=== PATIENT | female | born 1945 | race Caucasian/White ===

== ENCOUNTER 2025-07-30 09:12 | Outpatient (OUT) | payer MEDICARE, SELFPAY ==
--- OUTSIDE RECORDS SUMMARY | 2025-07-16 08:40 | XMS_ITS | Encounter Summary ---
Author Organization [facility] 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 Pt is here for a 4 week follow up after her heart cath. Pt is still very SOB and still having palpitations. She also has an issue with her thyroid right now. Light headed/dizziness off and on, no falls or syncope. She only has CP when her GERD acts up, she said when she takes her roll aids this helps. Encounter Details DateTypeDepartmentCare Team (Latest Contact Info)Pkiqcmfeblh57/20/2025 8:40 AM ESTOffice Visit [facility] Part of [address] [phone] Shan Romero MD [address] [place] [phone] Coronary artery calcification; Essential hypertension; Mixed hyperlipidemia; SOB (shortness of breath); Palpitations; Moderate mitral regurgitation; Primary hypertension Social History Tobacco UseTypesPacks/DayYears UsedDateSmoking Tobacco: VnkmexCouehqjzag418 08/27/1972 - 08/27/1982Smokeless Tobacco: Never Comments:quit 1982 Alcohol UseStandard Drinks/WeekCommentsNever0 (1 standard drink = 0.6 oz pure alcohol)[facility] UtilitiesAnswerDate RecordedIn the past 12 months has the electric, gas, oil, or water company threatened to shut off services in your home?No 10/23/2024Humiliation, Afraid, Rape, and Kick questionnaireAnswerDate Recorded Within the last year, have you been afraid of your partner or ex-partner?No 07/01/2023Within the last year, have you been humiliated or emotionally abused in other ways by your partner or ex-partner?No07/01/2023Within the last year, have you been kicked, hit, slapped, or otherwise physically hurt by your partner or ex-partner?No07/01/2023Within the last year, have you been raped or forced to have any kind of sexual activity by your partner or ex-partner?No07/01/2023 Social Connection and Isolation PanelAnswerDate RecordedIn a typical week, how many times do you talk on the phone with family, friends, or neighbors?Twice a week10/30/2022How often do you get together with friends or relatives?Three times a week10/30/2022How often do you attend zoroastrian or judaism services?More than 4 times per year10/30/2022o you belong to any clubs or organizations such as zoroastrian groups, unions, fraternal or athletic groups, or school groups?Yes 10/30/2022How often do you attend meetings of the clubs or organizations you belong to?More than 4 times per year10/30/2022re you , , , , never , or living with a partner?Jdzrfnmy98/06/2023 AUDIT-CAnswerDate RecordedQ1: How often do you have a drink containing alcohol? Never04/28/2024Q2: How many drinks containing alcohol do you have on a typical day when you are drinking?Patient does not drink04/28/2024Frequency of Binge DrinkingNot on file04/28/2024Overall Financial Resource Strain (CARDIA)Answer Date RecordedHow hard is it for you to pay for the very basics like food, housing, medical care, and heating?Not hard at all12/18/2023HQ-2AnswerDate RecordedPHQ-9 Total Jcrtm245Fin[facility] [place] of Occupational Health - Occupational Stress QuestionnaireAnswerDate RecordedDo you feel stress - tense, restless, nervous, or anxious, or unable to sleep at night because yourmind is troubled all the time - these days?Not at all10/30/2022Exercise Vital SignAnswer Date RecordedOn average, how many days per week do you engage in moderate to strenuous exercise (like a brisk walk)?2 days04/28/2024On average, how many minutes do you engage in exercise at this level?20 min04/28/2024Hunger Vital SignAnswerDate RecordedWithin the past 12 months, you worried that your food would run out before you got the money to buymore.Patient jzisqwyx36/27/2025 Within the past 12 months, the food you bought just didn't last and you didn't have money to get more.Patient /27/2025PRAPARE - TransportationAnswer Date RecordedIn the past 12 months, has lack of transportation kept you from medical appointments or from getting medications?No10/23/2024In the past 12 months, has lack of transportation kept you from meetings, work, or from getting things needed for daily living?No10/23/2024Housing Stability Vital SignAnswer Date RecordedUnable to Pay for Housing in the Last YearNot on file12/18/2023 Number of Places Lived in the Last YearNot on file12/18/2023In the last 12 months, was there a time when you did not have a steady place to sleep or slept in ashelter (including now)?No12/18/2023Housing Stability Vital SignAnswerDate RecordedIn the last 12 months, was there a time when you were not able to pay the mortgage or rent on time?No10/23/2024In the past 12 months, how many times have you moved where you were living?t any time in the past 12 months, were you homeless or living in a custodial (including now)?No10/23/2024 AUDIT-CAnswerDate RecordedQ1: How often do you have a drink containing alcohol? Never04/28/2025Q2: How many drinks containing alcohol do you have on a typical day when you are drinking?Patient does not drink04/28/2025Q3: How often do you have six or more drinks on one occasion?Never04/28/2025Exercise Vital SignAnswer Date RecordedOn average, how many days per week do you engage in moderate to strenuous exercise (like a brisk walk)?1 day04/28/2025On average, how many minutes do you engage in exercise at this level?30 min04/28/2025Food Insecurity AnswerDate RecordedWithin the past 12 months, you worried that your food would run out before you got the money to buymore.Within the past 12 months, the food you bought just didn't last and you didn't have money to get more.CommentsNoSex and Gender InformationValueDate Recorded Sex Assigned at TvisfWhcehf59/04/2021 3:24 PM ESTLegal MupSlvhej36/10/2013 3:38 PM ESTGender BrtbpqcsRiifos33/04/2021 3:24 PM ESTSexual OrientationStraight 09/30/2020 3:24 PM ESTdocumented as of this encounter Last Filed Vital Signs Vital SignReadingTime TakenCommentsBlood Pqqjmxib742/8211 8:30 AM EST Yahia020307/16/2025 8:30 AM ESTTemperature--Respiratory Imwa260209/15/2024 8:30 AM ESTOxygen Rrqrgnkael70%07/16/2025 8:30 AM ESTInhaled Oxygen Concentration-- Yfmspf537.3 kg (230 lb)07/16/2025 8:30 AM MTJAuuvka370.7 cm (5' 8 )07/16/2025 8:30 AM ESTBody Mass Index34.9707/16/2025 8:30 AM ESTdocumented in this encounter Patient Instructions * Patient Instructions* Diana Jones - 07/16/2025 8:24 AM EST SURVEY: You may be receiving a survey from [employer] regarding your visit today. Please complete the survey to enable us to provide the highest quality of care to you and your family. If you cannot score us a very good on any question, please call the office to discuss how we could have made your experience a very good one. Thank you. documented in this encounter Progress Notes * Shan Romero MD - 07/16/2025 8:31 AM EST Images from the original note were not included. I, Diana Jones am scribing for and in the presence of Shan Romero MD, F.A.C.C.. Patient: Apryl Parker : 1945 Date of Visit: July 16, 2025 REASON FOR VISIT / CONSULTATION: Hyperlipidemia (HX: coronary artery calci, SOB, HTN, HLD. Pt is here for a 4 week follow up after her heart cath. Pt is still very SOB and still having palpitations. She also has an issue with her thyroid right now. Light headed/dizziness off and on, no falls or syncope. She only has CP when her GERD acts up, she said when she takes her roll aids this helps. ) History of Present Illness: Dear Guido Christiansen MD, I had the pleasure of seeing Apryl Parker in my office today. Ms. Parker is a 79 y.o. female with a history of an abnormal CT of her chest. It showed mild coronary artery calcification. She has a history of hypertension and hyperlipidemia. She is being treated with medication for both. No history of diabetes. She does have hypothyroidism and takes levothyroxine. She is a former smoker, she quit in 1982. She smoked for 10 year total. Family history includes her sister who has hypertension and hyperlipidemia. Echocardiogram completed on 12/19/2023: EF of 60-65%Left ventricle size is normal. Moderate basal septal thickening. Findings consistent with moderate eccentric hypertrophy without a significant resting outflow tract gradient. Diastolic dysfunction present with normal LV EF. Mitral Valve: Mild to moderate regurgitation. Left Atrium: Left atrium is mildly dilated. Left atrial volume index is normal(16-34 mL/m2). EKG completed in office on 02/05/2024: Stress test done on 02/21/2025: Relatively normal myocardial perfusion study. Summed stress score is0. Gated SPECT showed normal left ventricular cavity size and wall motion. Calculated ejection fraction 68%. No evidence of stress-induced transient ischemic dilatation of the left ventricle. Overall, these results are most consistent with a low risk for significant coronary artery disease. EKG done on 04/28/2025: normal sinus rhythm 92 bpm Nuclear Lexiscan stress test completed 05/12/2025: Intermediate risk for cardiac events. Heart cath done on 06/18/25: Moderate single vessel coronary artery disease involving a ostial 50% stenosis in the D1 branch of the LAD and a mid 50% stenosis in the left anterior descending coronaryartery. Normal left ventricular end diastolic pressure. Proceed with aggressive maximal medical management as clinically indicated. Ms. Parker is here today for a 4 week follow up after her heart cath. She reports she is still very short of breath. She said it is not worse but it is not any better. She said she also has palpitations. She reports this started several months ago. She is having issues with her thyroid also right now. She has occasional light headed/dizziness, no falls or syncope. She said she only has chest pain if her GERD acts up, she takes roll aids for this and it does help. She does not do any walking but she does do a deep water swimming class. She is able to walk approximately 100 yards before becomingshort of breath, which is stable for her. Hydration includes about 40 ounces of water per day without electrolyte supplementation. Her sleep is good, she said that she sleeps a lot. No cough, fever or chills. No nausea or vomiting. No bleeding problems, bowel issues, problems with her medications or any other concerns at this time. History of Present Illness The patient is a 79-year-old female who presents for a 3-month follow-up. She has a history of coronary artery calcification, subsequent cardiac catheterization showed no significant CAD, chronic shortness of breath, mild to moderate valvular heart disease, intermittent palpitations, essential hyper tension, dyslipidemia, and obesity. Current medications are aspirin 81 mg daily, Lipitor 40 mg every night, losartan 50 mg daily, Toprol-XL 50 mg daily, Protonix, Zoloft, and Synthroid 125 mcg once aday. She reports persistent shortness of breath, which has not shown any improvement over the past several months. She does not engage in outdoor walking but participates in deep water swimming sessions afew times a week. She acknowledges her higher body weight. She has been experiencing thyroid issues for several months. Despite switching from generic Synthroid to the brand name, she has not noticed any improvement. She has previously consulted an material mover but is not currently under their care. She has undergone ablation and has been on Synthroid for the past 25 years. She has an upcoming appointment with Dr. Love on 08/04/2025 and has contacted a few endocrinologists who are unable to see her until 09/2025. She requires a referral for these appointments. She has a long-standing history of depression, dating back approximately 20 years. She is currentlyon a high dose of Zoloft (200 mg). She occasionally questions whether her symptoms are a manifestation of her depression. She reports excessive sleep and rapid sleep onset. She was diagnosed with wetmacular degeneration about 6 months ago and has been receiving injections in her eyes, which has caused her some mental distress. Her father had the same condition and was blind. She has been for about 16 years and has recently started dating a former schoolmate, which has improved her mood. She is curious about the potential interactions between her various medications and whether a change in her depression medication might be beneficial. SOCIAL HISTORY Marital Status: for about 16 years, currently dating. Exercise: Deep water swimming a couple of times a week. FAMILY HISTORY - Father: Macular degeneration, blindness PAST MEDICAL HISTORY: Past Medical History: Diagnosis Date Allergic rhinitis Autoimmune disorder 2001 Graves Depression 2008 Drug effect Compazine Essential hypertension GERD (gastroesophageal reflux disease) 2022 Hyperhidrosis Hypothyroidism [address] Pickard Impaired fasting glucose 2011 Irritable bowel syndrome December 2022 Macular degeneration Mixed hyperlipidemia Osteoarthritis Palpitations CURRENT ALLERGIES: Prilosec [omeprazole] and Prochlorperazine edisylate REVIEW OF SYSTEMS: 14 systems were reviewed. Pertinent positives and negatives as above, all else negative. Past Surgical History: Procedure Laterality Date ADENOIDECTOMY 1954 APPENDECTOMY 1966 BREAST SURGERY 1976 Benign Breast Biopsy CARDIAC CATHETERIZATION Left 06/18/2025 DR Schilling/[facility] [place]/right radial CARDIAC PROCEDURE N/A 06/18/2025 Left heart cath / coronary angiography performed by Bruce Schilling MD at [facility] CARDIAC CATH/IR LAB CHOLECYSTECTOMY 2006 COLONOSCOPY 2006 Normal COLONOSCOPY 08/22/2020 COLONOSCOPY N/A 08/23/2020 COLONOSCOPY POLYPECTOMY SNARE/COLD BIOPSY performed by Earnestine Woodson DO at [facility] OR CYST REMOVAL 12/2015 back EYE SURGERY 2019 Cataract HYSTERECTOMY, TOTAL ABDOMINAL (CERVIX REMOVED) 1980 JOINT REPLACEMENT Right 09/01/2019 Total knee PILONIDAL CYST EXCISION ME EXCISION TUMOR SOFT TISSUE BACK/FLANK SUBQ <3CM N/A 12/20/2018 BACK LESION EXCISION-PARTIAL RECURRENT CYST OF SKIN/SUBCUTANEOUS TISSUE ON UPPER BACK performed by Earnestine Woodson DO at [facility] OR SHOULDER ARTHROSCOPY Right 1986, Left 2003 SHOULDER CLOSED REDUCTION Left 2017 LYSSA AND BSO (CERVIX REMOVED) 1980 THYROID SURGERY 2001 Ablasion TONSILLECTOMY 1954 TOTAL KNEE ARTHROPLASTY Left 2013 TOTAL KNEE ARTHROPLASTY Right 09/01/2019 KNEE TOTAL ARTHROPLASTY performed by Marc Edmond MD at [facility] OR Social History: Social History Tobacco Use Smoking status: Former Current packs/day: 0.00 Average packs/day: 1 pack/day for 10.0 years (10.0 ttl pk-yrs) Types: Cigarettes Start date: 08/27/1972 Quit date: 08/27/1982 Years since quittin.9 Smokeless tobacco: Never Tobacco comments: quit 1982 Vaping Use Vaping status: Never Used Substance Use Topics Alcohol use: Never Drug use: No CURRENT MEDICATIONS: Outpatient Medications Marked as Taking for the 07/16/25 encounter (Office Visit) with Shan Romero MD Medication Sig Dispense Refill metoprolol succinate (TOPROL XL) 50 MG extended release tablet Take 1 tablet by mouth daily 90 tablet 3 SYNTHROID 125 MCG tablet TAKE 1 TABLET BY MOUTH DAILY 90 tablet 0 losartan (COZAAR) 50 MG tablet Take 1 tablet by mouth daily 90 tablet 0 aspirin 81 MG EC tablet Take 1 tablet by mouth daily 90 tablet 0 sertraline (ZOLOFT) 100 MG tablet TAKE 2 TABLETS ONCE DAILY 180 tablet 3 atorvastatin (LIPITOR) 40 MG tablet TAKE 1 TABLET DAILY 90 tablet 3 hydroCHLOROthiazide (HYDRODIURIL) 25 MG tablet TAKE 1 TABLET EVERY MORNING 90 tablet 3 pantoprazole (PROTONIX) 40 MG tablet Take 1 tablet by mouth every morning (before breakfast) 90 tablet 3 albuterol sulfate HFA (VENTOLIN HFA) 108 (90 Base) MCG/ACT inhaler Inhale 2 puffs into the lungs 4 times daily as needed for Wheezing or Shortness of Breath 18 g 2 glycopyrrolate (ROBINUL) 1 MG tablet Take 1 tablet by mouth in the morning and 1 tablet in the evening. Calcium Carbonate-Vitamin D (CALCIUM 600+D PO) Take 600 mg by mouth in the morning and at bedtime FAMILY HISTORY: family history includes Allergies in her sister; Arthritis in her sister; Breast Cancer in her maternal aunt; COPD in her father; Cancer in her father, maternal aunt, and mother; HighBlood Pressure in her sister; High Cholesterol in her sister; Lupus in her mother; Osteoporosis in her sister; Other in her sister. Physical Examination: BP 125/82 (BP Site: Left Upper Arm, Patient Position: Sitting, BP Cuff Size: Large Adult) Pulse 67 Resp 18 Ht 1.727 m (5' 8 ) Wt 104.3 kg (230 lb) LMP (LMP Unknown) SpO2 96% BMI 34.97 kg/m?? Body mass index is 34.97 kg/m??. Constitutional: She is oriented to person. She appears well-developed and well- nourished. In no acute distress. HEENT: Normocephalic and atraumatic.No JVD present. Carotid bruit is not present. No mass and no thyromegaly present. No lymphadenopathy present. Cardiovascular: Normal rate, regular rhythm, normal heart sounds. Exam reveals no gallop and no friction rubs. No murmur was heard. Pulmonary/Chest: Effort normal and breath sounds normal. No respiratory distress. She has no wheezes, rhonchi or rales. Abdominal: Soft, non-tender. Bowel sounds and aorta are normal. She exhibits noorganomegaly, mass or bruit. Extremities: None. No cyanosis or clubbing. 2+ radial and carotid pulses. Distal extremity pulses: 2+ bilaterally. Neurological: She is alert and oriented to person. No evidence of gross cranial nerve deficit. Coordination appeared normal. Skin: Skin is warm and dry. There is no rash or diaphoresis. Psychiatric: She has a normal mood and affect. Her speech is normal and behavior is normal. MOST RECENT LABS ON RECORD: Lab Results Component Value Date WBC 5.8 06/04/2025 HGB 13.7 06/04/2025 HCT 42.6 06/04/2025 PLT 287 06/04/2025 CHOL 152 10/29/2024 TRIG 110 10/29/2024 HDL 59 10/29/2024 ALT 25 10/29/2024 AST 23 10/29/2024 NA 140 06/04/2025 K 4.0 06/04/2025 CL 99 06/04/2025 CREATININE 1.2 (H) 06/04/2025 BUN 25 (H) 06/04/2025 CO2 30 06/04/2025 TSH 0.25 (L) 06/11/2025 GLUF 109 (H) 11/19/2018 LABA1C 5.6 10/29/2024 ASSESSMENT: 1. Coronary artery calcification 2. Essential hypertension 3. Mixed hyperlipidemia 4. SOB (shortness of breath) 5. Palpitations 6. Moderate mitral regurgitation 7. Primary hypertension PLAN: Assessment & Plan 1. Chronic stable coronary artery disease: - Continue current medications: aspirin 81 mg daily, Toprol-XL 50 mg daily, and Lipitor 40 mg everynight. - These medications are essential to prevent minor blockages in the heart arteries from worsening and causing a heart attack or stroke. - Patient education on the importance of adherence to medication regimen for heart protection. - Discussed that these medications are preventive and may not provide immediate symptomatic relief but are crucial for long-term cardiovascular health. 2. Chronic dyspnea: - Cardiac function is within normal limits, with minimal valvular regurgitation and no significant arterial pressure. - EKG results are satisfactory. - Signs of reactive airway disease, possibly mild COPD or asthma, noted. - Condition likely multifactorial due to limited physical activity and obesity. - Chronic fatigue and dyspnea could be manifestations of depression or minor depressive symptoms. - Engage in mild to moderate physical exertion for 30 to 45 minutes daily, at least 5 days a week, to improve stamina and overall activity level. - Patient education on the benefits of regular physical activity for heart and lung health. 3. Thyroid dysfunction: - TSH level is currently low at 0.24. - Alteration in thyroid function does not help with heart condition or chronic fatigue. - Consult an material mover for further evaluation and management of thyroid condition. - Referral to Dr. Bright, an material mover, will be provided. - Discussed the potential benefits of [place] thyroid, a thyroid extract, as an alternative treatment. 4. Depression: - Currently on Zoloft 200 mg for about 20 years. - SSRIs can cause fatigue and weight gain. - Consider seeing a psychiatrist for a second opinion on current medication regimen. - If symptoms persist, additional medication or switching to a different antidepressant may be considered. - Discussed the possibility of combining medications or switching to an SNRI or dopamine agonist. - Patient education on the potential side effects and benefits of different classes of antidepressants. - Recommended genetic testing to determine the most effective antidepressant medication, if feasible. Follow-up: 06/2026 Shortness of breath with mild exertion: Chronic Fatigue. Her shortness of breath has remained the same. PFT completed on 12/19/2023: pulmonary function test shows normal FEV1 and FVC, but FEV1/FVC ratio could be suggestive of obstructive ventilatory impairment. Reviewed her echo, ejection fraction is normal. Mild to moderate mitral regurgitation noted. Nothing to explain her current symptoms. Mild coronary artery calcification on chest CT I do believe that her shortness of breath is multifactorial from long covid symptoms, deconditioning and obesity. Nothing in her cardiac testing can explain her shortness of breath. Additional Testing List: None Mild to Moderate Mitral Regurgitation: Seen on Echo on 12/19/2023 EF of 60 to 65% Beta Nery: DECREASE Metoprolol succinate (Toprol XL) to 50 mg daily. Anti-anginal medications: Not indicated at this time. Cholesterol Reduction Therapy: Continue Atorvastatin (Lipitor) 40 mg daily. Recurrent intermittent palpitations: CAM 04/28/25: Rhythm is sinus with an average heart rate of 72 bpm, ranging between 58 and 106 bpm. No significant tachycardia, severe bradycardia or pauses. Rare isolated PACs and PVCs noted with occasional short runs of ectopic atrial tachycardia, the longest being 19 beats at an average heart rateof 101 bpm. No ventricular runs. Beta Nery: DECREASE Metoprolol succinate (Toprol XL) to 50 mg daily. Essential Hypertension: Controlled [place] Inibitor/ARB: Continue losartan (Cozaar) 50 mg daily. Diuretics: Continue Hydrochlorothiazide (HCTZ) 25 mg every morning. Calcium Channel Nery: Not indicated at this time. Beta Nery: DECREASE Metoprolol succinate (Toprol XL) to 50 mg daily. Hyperlipidemia: Mixed - Last LDL on 10/29/2024 was 71 mg/dL Cholesterol Reduction Therapy: Continue Atorvastatin (Lipitor) 40 mg daily. Obesity: Body mass index is 34.97 kg/m??. I also briefly discussed both diet and exercise strategies for her to continue to loses weight and she was very receptive to this. In the meantime, I encouraged Ms. Parker to continue to take her other medications. FOLLOW UP: I told Ms. Parker to call my office if she had any problems, but otherwise I asked her to Return in about 1 year (around 07/16/2026). However, I would be happy to see her sooner should the need arise. Sincerely, Shan Romero MD, MS, F.A.C.C. [facility], [address] [address] , I believe that the risk of significant morbidity and mortality related to the patient's current medical conditions are: intermediate-high. At least 40 minutes were spent during prep work, discussion and exam of the patient, and follow up documentation and all of their questions were answered. documented in this encounter Plan of Treatment DateTypeDepartmentCare Team (Latest Contact Info)Yosrffsatvw46/09/2025 1:30 PM ESTOffice Visit [address] [place] [address] Guido Christiansen MD [address] [place] [address] [place] [address] f/u med /15/2026 1:30 PM EDTOffice Visit [address] [place] [address] Guido Christiansen MD [address] [place] [address] [address] [place] [address] AWV109/27/2025 2:00 PM ESTOffice Visit [facility] Part of [address] [phone] Shan Romero MD [address] [place] [address] [place] [id number] 1 yrdocumented as of this encounter Visit Diagnoses Diagnosis Coronary artery calcification Essential hypertension Unspecified essential hypertension Mixed hyperlipidemia SOB (shortness of breath) Shortness of breath Palpitations Moderate mitral regurgitation Mitral valve disorders Primary hypertension Unspecified essential hypertension documented in this encounter Additional Health Concerns AssessmentNoted TimeA fall risk assessment has been completed for the patient 04/28/2025 2:34 PM EDTdocumented as of this encounter Care Teams Team MemberRelationshipSpecialtyStart DateEnd Date Guido Christiansen MD [address] [place] [id number] PCP - GeneralFamily Medicine01/01/23documented as of this encounter
--- OUTSIDE RECORDS SUMMARY | 2025-07-29 00:10 | XMS_ITS | Encounter Summary ---
Author Organization [facility] Address [address], [address] [place] [address] Care Team Providers Care Retirement Sales Consultant Name Role Phone Guido Christiansen MD Primary Care Provider [phone] Encounter Details DateTypeDepartmentCare Team (Latest Contact Info)Mjrrikwnetj21/03/2025 12:10 AM EST - 07/29/2025 11:59 PM ESTHospital Encounter [facility] [address] [place] [address] [id number] Hypovitaminosis D; Hypothyroidism, unspecified type; Lipid screening Discharge Disposition: Home or Self Care Social History Tobacco UseTypesPacks/DayYears UsedDateSmoking Tobacco: FoergqYnitokwkfb877 08/27/1972 - 08/27/1982Smokeless Tobacco: Never Comments:quit 1982 Alcohol UseStandard Drinks/WeekCommentsNever0 (1 standard drink = 0.6 oz pure alcohol)[facility] UtilitiesAnswerDate RecordedIn the past 12 months has the [employer], gas, oil, or water [employer] threatened to shut off services in your [...] times a week10/30/2022How often do you attend anglican or hindu services?More than 4 times per year10/30/2022o you belong to any clubs or organizations such as anglican groups, unions, fraternal or athletic groups, or school groups?Yes 10/30/2022How often do you attend meetings of the clubs or organizations you belong to?More than 4 times per year10/30/2022re you , , , , never , or living with a partner?Svzjvgzp52/06/2023 AUDIT-CAnswerDate RecordedQ1: How often do you have [...] and heating?Not hard at all12/18/2023HQ-2AnswerDate RecordedPHQ-9 Total Ngvqd139[facility] [place] of [facility]ational Health - Occupational Stress QuestionnaireAnswerDate [...] before you got the money to buymore.Patient henpebns29/27/2025 Within the past 12 months, the food [...] steady place to sleep or slept in [facility] (including now)?No12/18/2023Housing Stability Vital SignAnswerDate RecordedIn the last 12 months, was there a time when you were not able to pay the mortgage or rent on time?No10/23/2024In the past 12 months, how many times have you moved where you were living?t any time in the past 12 months, were you homeless or living in a snf (including now)?No10/23/2024 AUDIT-CAnswerDate RecordedQ1: How often do [...] and Gender InformationValueDate Recorded Sex Assigned at ZcbdnHgsxre91/04/2021 3:24 PM ESTLegal HmgQevidt35/10/2013 3:38 PM ESTGender EoxyjntoNvgaux29/04/2021 3:24 PM ESTSexual OrientationStraight 09/30/2020 3:24 PM ESTdocumented as of this encounter Medications at Time of Discharge MedicationSigDispense QuantityRefillsLast FilledStart DateEnd Date metoprolol succinate (TOPROL XL) 50 MG extended release tablet Indications:Coronary artery calcification,Essential hypertension,Mixed hyperlipidemia,SOB (shortness of breath),Palpitations,Moderate mitral regurgitation,Primary hypertensionTake 1 tablet by mouth daily 90 tablet SYNTHROID 125 MCG tablet TAKE 1 TABLET BY MOUTH DAILY 90 tablet 07/06/2025 losartan (COZAAR) 50 MG tablet Indications:Primary hypertensionTake 1 tablet by mouth daily 90 tablet 06/15/2025 aspirin 81 MG EC tablet Take 1 tablet by mouth daily 90 tablet 06/03/2025 sertraline (ZOLOFT) 100 MG tablet Indications:AnxietyTAKE 2 TABLETS ONCE DAILY 180 tablet atorvastatin (LIPITOR) 40 MG tablet Indications:Mixed hyperlipidemiaTAKE 1 TABLET DAILY 90 tablet hydroCHLOROthiazide (HYDRODIURIL) 25 MG tablet Indications:Primary hypertensionTAKE 1 TABLET EVERY MORNING 90 tablet pantoprazole (PROTONIX) 40 MG tablet Indications:Gastroesophageal reflux disease, unspecified whether esophagitis presentTake 1 tablet by mouth every morning (before breakfast) 90 tablet albuterol sulfate HFA (VENTOLIN HFA) 108 (90 Base) MCG/ACT inhaler Indications:Shortness of breathInhale 2 puffs into the lungs 4 times daily as needed for Wheezing or Shortness of Breath 18 g glycopyrrolate (ROBINUL) 1 MG tablet Take 1 tablet by mouth in the morning and 1 tablet in the evening.04/20/2021 Calcium Carbonate-Vitamin D (CALCIUM 600+D PO) Take 600 mg by mouth in the morning and at bedtimedocumented as of this encounter Plan of Treatment DateTypeDepartmentCare Team (Latest Contact Info)Elloowtalwx66/09/2025 1:30 PM ESTOffice Visit [facility] [address] [place] [address] [address] [place] [address] Guido Christiansen MD [address] [place] [address] f/u med kupabaexgi41/15/2026 1:30 PM EDTOffice Visit [facility] Primary Care [address] [place] [address] [address] [place] [address] Guido Christiansen MD [address] [place] [address] AWV109/27/2025 2:00 PM ESTOffice Visit [facility] [address] [facility] [address] [place] [phone] Shan Roemro MD [address] [place] [phone] 1 yrdocumented as of this encounter Procedures Procedure NamePriorityDate/TimeAssociated AgpfiwilfAoganxwzEMHLrmyzxg65/03/2025 9:39 AM EST Hypothyroidism, unspecified type T4, HRJNJyjkjsk93/03/2025 9:39 AM EST Hypothyroidism, unspecified type LIPID NZJYPAkuygmg00/03/2025 9:39 AM EST Lipid screening CBC WITH AUTO EMEIPLIRJAHTCsqjpqu41/03/2025 9:38 AM EST Hypothyroidism, unspecified type VITAMIN D 25 CEGDFXKUkyemju16/03/2025 9:38 AM EST Hypovitaminosis D T3, XAANVshhdrf78/03/2025 9:38 AM EST Hypothyroidism, unspecified type COMPREHENSIVE METABOLIC MXNLNDslwmcp61/03/2025 9:38 AM EST Hypothyroidism, unspecified type documented in this encounter Results * Lipid Panel (07/29/2025 9:39 AM EST)ComponentValueRef RangeTest MethodAnalysis TimePerformed AtPathologist SignatureCholesterol, Mcxmu9135 - 199 mg/dL 07/29/2025 9:39 AM ESTMERCY LABORATORIESComment: Cholesterol Guidelines: <200 Desirable 200-240 ??Borderline >240 Undesirable HDL54>40 mg/dL07/29/2025 9:39 AM ESTMERCY LABORATORIESComment: HDL Guidelines: <40 Undesirable 40-59 ?Borderline >59 Desirable LDL Wrqwvewmvbc028 - 100 mg/dL07/29/2025 9:39 AM ESTMERCY [facility]ORATORIESComment: LDL Guidelines: <100 Desirable 100-129 ?? Near to/above Desirable 130-159 ?? Borderline >159 Undesirable Direct (measured) LDL and calculated LDL are not interchangeable tests. Chol/HDL Ratio3.0<5.012 9:39 AM ESTMERCY NIVIOYGHCLETIwzjxzycdybtr142 <150 mg/dL07/29/2025 9:39 AM ESTMERCY LABORATORIESComment: Triglyceride Guidelines: <150 Desirable 150-199 ??Borderline 200-499 ??High >499 Very high Based on AHA Guidelines for fasting triglyceride, May 2012. BCHP133 - 30 mg/dL07/29/2025 9:39 AM ESTMERCY LABORATORIESSpecimen (Source) Anatomical Location / LateralityCollection Method / VolumeCollection Time Received TimeBloodBLOOD SPECIMEN / Cpkpqfv7907/29/2025 9:39 AM EST07/29/2025 9:40 AM EST Narrative Authorizing ProviderResult TypeResult StatusStefan Iacob MDCHEMISTRY ORDERABLES Final ResultPerforming OrganizationAddressCity/State/ZIP CodePhone Number LAB [address] [place] [address], [facility] [phone] [address], [facility] [phone] * T4, Free (07/29/2025 9:39 AM EST)ComponentValueRef RangeTest MethodAnalysis TimePerformed AtPathologist SignatureT4 Free1.20.92 - 1.68 ng/dL07/29/2025 9:39 AM ESTMER LABORATORIESSpecimen (Source)Anatomical Location / Laterality Collection Method / VolumeCollection TimeReceived TimeBloodBLOOD SPECIMEN / Xvoequl3307/29/2025 9:39 AM EST07/29/2025 9:40 AM EST Narrative Authorizing ProviderResult TypeResult StatusStefan Iacob MDCHEMISTRY ORDERABLES Final ResultPerforming OrganizationAddressCity/State/ZIP CodePhone Number LAB [address] [place] [address], [facility] [phone] [phone] * TSH (07/29/2025 9:39 AM EST)ComponentValueRef RangeTest MethodAnalysis Time Performed AtPathologist SignatureTSH1.950.27 - 4.20 uIU/mL07/29/2025 9:39 AM [facility] LABSpecimen (Source)Anatomical Location / LateralityCollection Method / VolumeCollection TimeReceived TimeBloodBLOOD SPECIMEN / Jrwnnjx7407/29/2025 9:39 AM EST07/29/2025 9:40 AM EST Narrative Authorizing ProviderResult TypeResult StatusStefan Iacob MDCHEMISTRY ORDERABLES Final ResultPerforming OrganizationAddressCity/State/ZIP CodePhone Number LAB [address] [place] [address] * T3, Free (07/29/2025 9:38 AM EST)ComponentValueRef RangeTest MethodAnalysis TimePerformed AtPathologist SignatureT3, Free2.362.00 - 4.40 pg/mL07/29/2025 9:38 AM ESTAKRON CHILDR[facility] LABORATORIESSpecimen (Source)Anatomical Location / Laterality Collection Method / VolumeCollection TimeReceived TimeBloodBLOOD SPECIMEN / Hsedvkn6607/29/2025 9:38 AM EST07/29/2025 9:39 AM EST Narrative Authorizing ProviderResult TypeResult StatusStefan Iacob MDCHEMISTRY ORDERABLES Final ResultPerforming OrganizationAddressCity/State/ZIP CodePhone Number LAB [address] [place] [address], [facility] [phone] [facility] [address] [place] [address], [facility] [phone] * (ABNORMAL) Comprehensive Metabolic Panel (07/29/2025 9:38 AM EST)Component ValueRef RangeTest MethodAnalysis TimePerformed AtPathologist SignatureSodium 915731 - 145 mmol/L109/29/2024 9:38 AM [facility] Potassium3.83.7 - 5.3 mmol/L109/29/2024 9:38 AM [facility] SNYFkqskbso72519 - 107 mmol/L109/29/2024 9:38 AM [facility] GRTJC42593 - 31 mmol/L109/29/2024 9:38 AM [facility] LABAnion Flr451 - 16 mmol/L109/29/2024 9:38 AM [facility] NTMOcqgjwu733(H)74 - 99 mg/dL07/29/2025 9:38 AM [facility] ZAIUQR410 - 23 mg/dL07/29/2025 9:38 AM [facility] LABCreatinine1.1(H)0.50 - 0.90 mg/dL07/29/2025 9:38 AM [facility] LABEst, Glom Filt Rate53(L)>60 mL/min/1.49z00507/29/2025 9:38 AM [facility] LABComment: ? These results are not intended for use in patients <18 years of age. ? eGFR results are calculated without a race factor using the 2020 CKD-EPI equation. Careful clinical correlation is recommended, particularly when comparing to results calculated using previous equations. The CKD-EPI equation is less accurate in patients with extremes of muscle mass, extra-renal metabolism of creatine, excessive creatine ingestion, or following therapy that affects renal tubular secretion. BUN/Creatinine Ratio21(H) - 9:38 AM [facility] LABCalcium9.28.6 - 10.4 mg/dL07/29/2025 9:38 AM [facility] LABTotal Protein6.66.6 - 8.7 g/dL07/29/2025 9:38 AM [facility] LABAlbumin4.33.5 - 5.2 g/dL07/29/2025 9:38 AM [facility] LABAlbumin/Globulin Ratio1.81.0 - 2.512 9:38 AM [facility] LABTotal Bilirubin0.50.00 - 1.20 mg/dL07/29/2025 9:38 AM [facility] LABAlkaline Yjcrauuqvos2022 - 104 U/L109/29/2024 9:38 AM [facility] QRXKPW7382 - 35 U/L12 9:38 AM [facility] DWNBDH6511 - 35 U/L109/29/2024 9:38 AM [facility] LABSpecimen (Source)Anatomical Location / Laterality Collection Method / VolumeCollection TimeReceived TimeBloodBLOOD SPECIMEN / Zfatlfs5507/29/2025 9:38 AM EST07/29/2025 9:39 AM EST Narrative Authorizing ProviderResult TypeResult StatusStefan Iacob MDCHEMISTRY ORDERABLES Final ResultPerforming OrganizationAddressCity/State/ZIP CodePhone Number LAB [address] [phone] * (ABNORMAL) CBC with Auto Differential (07/29/2025 9:38 AM EST)ComponentValue Ref RangeTest MethodAnalysis TimePerformed AtPathologist SignatureWBC4.23.5 - 11.3 k/uL07/29/2025 9:38 AM [facility] LABRBC4.353.95 - 5.11 m/uL07/29/2025 9:38 AM [facility] VJBOodxicwwnz21.5 11.9 - 15.1 g/dL07/29/2025 9:38 AM [facility] Rtvpzujycc82.236.3 - 47.1 %07/29/2025 9:38 AM [facility] ZPNOYT91.782.6 - 102.9 fL07/29/2025 9:38 AM [facility] BIJZEI07.025.2 - 33.5 pg07/29/2025 9:38 AM [facility] MCHC32.828.4 - 34.8 g/dL07/29/2025 9:38 AM [facility] RDW13.511.8 - 14.4 %07/29/2025 9:38 AM [facility] Shebuijct692709 - 453 k/uL07/29/2025 9:38 AM [facility] LABMPV9.98.1 - 13.5 fL07/29/2025 9:38 AM [facility] NRBC Automated0.00.0 per 100 WBC07/29/2025 9:38 AM [facility] LABNeutrophils %68(H)36 - 65 %07/29/2025 9:38 AM [facility] LABLymphocytes %22(L)24 - 43 %07/29/2025 9:38 AM [facility] LABMonocytes %73 - 12 %07/29/2025 9:38 AM [facility] LABEosinophils %21 - 4 %07/29/2025 9:38 AM [facility] LABBasophils %10 - 2 %07/29/2025 9:38 AM [facility] LABImmature Granulocytes %00 %07/29/2025 9:38 AM [facility] LABNeutrophils Absolute2.831.50 - 8.10 k/uL 07/29/2025 9:38 AM [facility] LABLymphocytes Absolute0.92 (L)1.10 - 3.70 k/uL07/29/2025 9:38 AM [facility] Monocytes Absolute0.300.10 - 1.20 k/uL07/29/2025 9:38 AM [facility] LABEosinophils Absolute0.100.00 - 0.44 k/uL07/29/2025 9:38 AM [facility] LABBasophils Absolute0.050.00 - 0.20 k/uL 07/29/2025 9:38 AM [facility] LABImmature Granulocytes Absolute<0.030.00 - 0.30 k/uL07/29/2025 9:38 AM [facility] LABSpecimen (Source)Anatomical Location / LateralityCollection Method / VolumeCollection TimeReceived TimeBloodBLOOD SPECIMEN / Jcupscz7007/29/2025 9:38 AM EST07/29/2025 9:39 AM EST Narrative Authorizing ProviderResult TypeResult StatusStefmikey Christiansen MDHEMATOLOGY ORDERABLES Final ResultPerforming OrganizationAddressCity/State/ZIP CodePhone Number LAB [address] [place] [address], [facility] [phone] * Vitamin D 25 Hydroxy (07/29/2025 9:38 AM EST)ComponentValueRef RangeTest MethodAnalysis TimePerformed AtPathologist SignatureVit D, 25-Lfkomvd98.230.0 - 100.0 ng/mL07/29/2025 9:38 AM [facility] NetIQComment: Reference Range: Vitamin D status ? Range Deficiency <20 ng/mL Mild Deficiency ? 20-30 ng/mL Sufficiency ?30-100 ng/mL Toxicity >100 ng/mL Specimen (Source)Anatomical Location / LateralityCollection Method / Volume Collection TimeReceived TimeBloodBLOOD SPECIMEN / Aozamze2507/29/2025 9:38 AM EST 07/29/2025 9:39 AM EST Narrative Authorizing ProviderResult TypeResult StatusStefmikey Christiansen MDCHEMISTRY ORDERABLES Final ResultPerforming OrganizationAddressCity/State/ZIP CodePhone Number LAB [address] [place] [address], [facility] [phone] [employer] [address] [place] [address], [facility] [phone] documented in this encounter Visit Diagnoses Diagnosis Hypovitaminosis D Unspecified vitamin D deficiency Hypothyroidism, unspecified type Lipid screening Screening for lipoid disorders documented in this encounter Additional Health Concerns AssessmentNoted TimeA fall risk assessment has been completed for the patient 04/28/2025 2:34 PM EDTdocumented as of this encounter Care Teams Team MemberRelationshipSpecialtyStart DateEnd Date Guido Christiansen MD [address] [place], [place] [id number] PCP - GeneralFamily Medicine01/01/23documented as of this encounter
--- NOTE | 2025-07-30 09:14 | MM_ITS ---
Patient Name: TANISHA RAVI MR#: [id number] : 1945 Exam Date: 07/30/2025 Ordering Doctor: JUDY MANN RADIOLOGY REPORT PROCEDURE: MM TOMOSYNTHESIS SCREENING BI COMPARISON: MAMMO JOVANI SCREEN, 04/09/2024. MAMMO JOVANI SCREEN, 01/26/2023. MAMMO JOVANI SCREEN, 11/23/2021. INDICATIONS: Screening Calculator Name NCI Breast Cancer Risk Assessment Tool 5 Year Breast Cancer Risk 2.30% Lifetime Breast Cancer Risk 4.00% Personal Breast Cancer No Personal Ovarian Cancer No Treatments None Family Cancers Aunt-maternal with breast cancer at age ~50; Mother with lymphoma cancer at age 74; Father with leukemia cancer at age 73. LOCATION: [facility] BREAST COMPOSITION: The breasts are heterogeneously dense, which may obscure small masses. FINDINGS: RIGHT BREAST: No significant suspicious finding. LEFT BREAST: No significant suspicious finding. Benign-appearing calcifications are noted. DIAGNOSTIC CATEGORY 2--BENIGN FINDING. NO CHANGE FROM COMPARISON. RECOMMENDATIONS: ROUTINE MAMMOGRAM AND CLINICAL EVALUATION IN 12 MONTHS. Dictated by: Antonio Pedroza MD on 07/31/2025 at 13:56 Approved by: Antonio Pedroza MD on 07/31/2025 at 14:01
--- OUTSIDE RECORDS SUMMARY | 2025-07-30 09:15 | XMS_ITS | Clinical Summary ---
Author Organization [employer] tem Address [id number] [address] [place] [address] Care Team Providers Care Ankle Patch Molder Name Role Phone Antonio Bell MD Primary Care Provider [phone] Allergies Active AllergyReactionsCriticalityNoted DateCommentsProchlorperazine Edisylate VcpbderluywKgtv92/24/2017 Medications MedicationSigDispense QuantityRefillsLast FilledStart DateEnd DateStatus lisinopril (PRINIVIL,ZESTRIL) 2.5 mg tablet Take 2.5 mg by mouth daily.Active atorvastatin (LIPITOR) 40 mg tablet Take 40 mg by mouth daily.Active hydroCHLOROthiazide (HYDRODIURIL) 12.5 mg tablet Take 12.5 mg by mouth daily.Active buPROPion XL (WELLBUTRIN XL) 300 mg 24 hr tablet Take 300 mg by mouth daily.Active loratadine (CLARITIN) 10 mg tablet Take 10 mg by mouth daily.Active glucosamine-chondroitin 500-400 mg tablet Take 1 tablet by mouth 3 (three) times a day.Active ibuprofen (ADVIL,MOTRIN) 200 mg tablet Take 200 mg by mouth daily.Active levothyroxine (SYNTHROID, LEVOTHROID) 100 MCG tablet Take 125 mcg by mouth daily. Active calcium carbonate (OS-BRENTON) 600 mg (1,500 mg) tablet Take 600 mg by mouth 2 (two) times a day with meals.Active DULoxetine (CYMBALTA) 60 mg capsule Take 60 mg by mouth daily.Active C,E,zinc,copper 10-pcpsh1u-ekn (OCUVITE ADULT 50 PLUS) 250-5-1 mg capsule Take by mouth daily.Active fluticasone propionate (FLONASE) 50 mcg/actuation nasal spray Administer 1 spray into each nostril daily.Active Active Problems No known active problems Family History Medical HistoryRelationNameCommentsCancerFatherCancerMotherRelationNameStatus CommentsFatherDeceasedMotherDeceased Social History Tobacco UseTypesPacks/DayYears UsedDateSmoking Tobacco: FormerCigarettesQuit: 04/19/1983Smokeless Tobacco: NeverAlcohol UseStandard Drinks/WeekCommentsNo0 (1 standard drink = 0.6 oz pure alcohol)PHQ-2AnswerDate RecordedTotal Score0 03/22/2020ChildcareAnswerDate FrhztxnsUuuczdwydEjlufpn51/12/2019EmploymentAnswer Date YdsejadrOrayezesumNcjpgtt31/12/2019Purpose - LifeAnswerDate RecordedPurpose and direction in bgijKbdumzd76/11/2021CommentsNoSex and Gender InformationValueDate RecordedSex Assigned at BirthNot on fileLegal SexFemale 01/25/2017 8:17 AM EDTGender IdentityNot on fileSexual OrientationNot on file Last Filed Vital Signs Vital SignReadingTime TakenCommentsBlood Skwzznqg790/85005/06/2020 10:30 AM EDT Qdiep113605/06/2020 10:30 AM FSGChbpenccyus51.6 ??C (97.8 ??F)05/06/2020 8:29 AM EDTRespiratory Mzfj576405/06/2020 10:30 AM EDTOxygen Kcseahmjis04%05/06/2020 10:15 AM EDTInhaled Oxygen Concentration--Fshbgq26.8 kg (220 lb)05/06/2020 8:29 AM EDT Mhugby690.7 cm (5' 8 )05/06/2020 8:29 AM EDTBody Mass Index33.45005/06/2020 8:29 AM EDT Plan of Treatment Health MaintenanceDue DateLast DoneCommentsDepression Fkhjyhlpy52/01/1959Tobacco Duojrylnm38/01/1959DTaP,Tdap and Td Vaccines (1 - Tdap)1965Zoster (Shingles) Vaccine (2 of 3)/Fall Risk Kshtasoll84/01/2012RSV ( or age 60+ yrs) (1 - 1-dose 75+ series)2021Influenza Vaccine 511/, 06/13/2018, 06/05/2017, Additional history exists Medical Devices ImplantedTypeAreaManufacturerDevice IdentifierShelf Expiration DateModel / Serial / Jorge 4.75 - Sna - [id number] Implanted:Qty: 1 on 05/14/2017 [facility] [id number]/31/2019AR-[id number] / NA / [id number] Iol Ultrasert 20.0d - [id number] - [id number] Implanted:Qty: 1 on 03/23/2020 by Karis Parker MD at [facility]: [id number] 20.0 / [id number] / NALens Iol Ultrasert 19.5d - [id number] - [id number] Implanted:Qty: 1 on 05/06/2020 by Karis Parker MD at [facility]: [id number] 19.5 / [id number] / NA Insurance Care Teams Team MemberRelationshipSpecialtyStart DateEnd Date Antonio Bell MD [address] [place] [address] [facility]01/30/17
--- OUTSIDE RECORDS SUMMARY | 2025-07-30 09:15 | XMS_ITS | Encounter Summary ---
Author Organization Td [facility]oz [facility] Address [address], [address] [place] [address] Care Team Providers Care Carbonizer Name Role Phone Guido Christiansen MD Primary Care Provider [phone] Reason for Visit * ReasonOnset DateCommentsendocrinologist ipipbbbo59/02/2025 Encounter Details DateTypeDepartmentCare Team (Latest Contact Info)Bqjoiilmhcm10/02/2025Telephone [facility] CARDIOLOG[facility] Part of [address] [address] Shan Romero MD [address] [place] [address] bell spinner referral Social History Tobacco UseTypesPacks/DayYears UsedDateSmoking Tobacco: CojuybKofyfbkrug998 08/27/1972 - 08/27/1982Smokeless Tobacco: Never Comments:quit 1982 Alcohol UseStandard Drinks/WeekCommentsNever0 (1 standard drink = 0.6 oz pure alcohol)[facility] UtilitiesAnswerDate RecordedIn the past 12 months [...] times a week10/30/2022How often do you attend latter-day or religion services?More than 4 times per year10/30/2022o you belong to any clubs or organizations such as latter-day groups, unions, fraternal or athletic groups, or school groups?Yes 10/30/2022How often do you attend meetings of the clubs or organizations you belong to?More than 4 times per year10/30/2022re you , , , , never , or living with a partner?Emjqfdtx74/06/2023 AUDIT-CAnswerDate RecordedQ1: How often do you have [...] and heating?Not hard at all12/18/2023HQ-2AnswerDate RecordedPHQ-9 Total Aclwp172Finmountain west medical center [place] of Occupational Health - Occupational Stress QuestionnaireAnswerDate [...] before you got the money to buymore.Patient uxmamevs11/27/2025 Within the past 12 months, the food [...] steady place to sleep or slept in [facility] (including now)?No12/18/2023Housing Stability Vital SignAnswerDate RecordedIn the [...] and Gender InformationValueDate Recorded Sex Assigned at UbmzpDwkmxs43/04/2021 3:24 PM ESTLegal HyyJudnka14/10/2013 3:38 PM ESTGender ViroukjkZcxsmv96/04/2021 3:24 PM ESTSexual OrientationStraight 09/30/2020 3:24 PM ESTdocumented as of this encounter Plan of Treatment DateTypeDepartmentCare Team (Latest Contact Info)Cofjedlftfm47/09/2025 1:30 PM ESTOffice Visit [address] aPrk Perkins [facility] [place] [address] Guido Christiansen MD [address] [place] [address] Dr. Park Perkins [facility] [address] f/u med sawxaugjvh90/15/2026 1:30 PM EDTOffice Visit [address] [place] [address] Guido Christiansen MD [address] [place] [address] Dr. Nick [address] [place] [address] AWV109/27/2025 2:00 PM ESTOffice Visit [facility] Part of [address] [place] [address] Shan Romero MD [address] [place] [address] [place] [address] 1 yrdocumented as of this encounter Visit Diagnoses Not on filedocumented in this encounter Additional Health Concerns AssessmentNoted TimeA fall risk assessment has been completed for the patient 04/28/2025 2:34 PM EDTdocumented as of this encounter Care Teams Team MemberRelationshipSpecialtyStart DateEnd Date Guido Christiansen MD [address] [place] [address] PCP - GeneralFamily Medicine01/01/23documented as of this encounter
--- OUTSIDE RECORDS SUMMARY | 2025-07-30 09:15 | XMS_ITS | Encounter Summary ---
Author Organization Td Cain re [facility] Address [address], [address] [place] [address] Care Team Providers Care Payroll Accounting Manager Name Role Phone Guido Christiansen MD Primary Care Provider [phone] Reason for Visit * ReasonCommentsNew Med Request Encounter Details DateTypeDepartmentCare Team (Latest Contact Info)Hmdwomzchsk80/19/2025[facility] Part of [address] [address] Shan Romero MD [address] [place] [address] New Med Request Social History Tobacco UseTypesPacks/DayYears UsedDateSmoking Tobacco: KdvvwpUioojobnda325 08/27/1972 - 08/27/1982Smokeless Tobacco: Never Comments:quit 1982 Alcohol UseStandard Drinks/WeekCommentsNever0 (1 standard drink = 0.6 oz pure alcohol)[facility] UtilitiesAnswerDate RecordedIn the past 12 months has the [employer], gas, oil, or water [employer] threatened to shut off services in your [...] times a week10/30/2022How often do you attend buddhist or episcopal services?More than 4 times per year10/30/2022o you belong to any clubs or organizations such as buddhist groups, unions, fraternal or athletic groups, or school groups?Yes 10/30/2022How often do you attend meetings of the clubs or organizations you belong to?More than 4 times per year10/30/2022re you , , , , never , or living with a partner?Bsaheqpu94/06/2023 AUDIT-CAnswerDate RecordedQ1: How often do you have [...] and heating?Not hard at all12/18/2023HQ-2AnswerDate RecordedPHQ-9 Total Hytiy394Fingarfield memorial hospital [place] of Occupational Health - Occupational Stress QuestionnaireAnswerDate [...] before you got the money to buymore.Patient /27/2025 Within the past 12 months, the food you bought just didn't last and you didn't have money to get more.Patient pemysfsh32/27/2025PRAPARE - TransportationAnswer Date RecordedIn the past 12 [...] steady place to sleep or slept in [facility] (including now)?No12/18/2023Housing Stability Vital SignAnswerDate RecordedIn the last 12 months, was there a time when you were not able to pay the mortgage or rent on time?No10/23/2024In the past 12 months, how many times have you moved where you were living?t any time in the past 12 months, were you homeless or living in a penitentiary (including now)?No10/23/2024 AUDIT-CAnswerDate RecordedQ1: How often do [...] and Gender InformationValueDate Recorded Sex Assigned at RznuvYtemas41/04/2021 3:24 PM ESTLegal RjaBengfb15/10/2013 3:38 PM ESTGender UtnqrmbgCwkjsj71/04/2021 3:24 PM ESTSexual OrientationStraight 09/30/2020 3:24 PM ESTdocumented as of this encounter Plan of Treatment DateTypeDepartmentCare Team (Latest Contact Info)Lbuwgegbiwi02/09/2025 1:30 PM ESTOffice Visit [facility] [address] [place] [address] Dr [address] [place] [address] Guido Christiansen MD [address] [place] [address] Dr. Nick [address] [place] [address] f/u med gavkvfvxjc05/15/2026 1:30 PM EDTOffice Visit [address] [place] [address] Guido Christiansen MD [address] [place] [address] Dr. Nick [address] [place] [address] AWV109/27/2025 2:00 PM ESTOffice Visit [facility] Part of [address] [place] [address] Shan Romero MD [address] [place] [address] [place] [address] 1 yrdocumented as of this encounter [...] MemberRelationshipSpecialtyStart DateEnd Date Guido Christiansen MD [address] [place] [id number] PCP - GeneralFamily Medicine01/01/23documented as of this encounter
--- OUTSIDE RECORDS SUMMARY | 2025-07-30 09:15 | XMS_ITS | Clinical Summary ---
Author Organization [facility] Healthcare Address [address] [place] [address] Care Team Providers Care Binding Printer Name Role Phone Unavailable Primary Care Provider Unavailabl e Allergies Active AllergyReactionsCriticalityNoted DateCommentsOmeprazoleAnaphylaxis, KkwrtxxElek05/16/2019 Other Reaction(s): comment: PRILOSEC; DateOnSet: 20100906; ProchlorperazineAnaphylaxis,JhlkquqBsjf29/29/2013 Other Reaction(s): ??comment: COMPAZINE; ??DateOnSet: 20100906; COMPAZINE Patient tolerates phenergan without complications Medications MedicationSigDispense QuantityRefillsLast FilledStart DateEnd DateStatus atorvastatin (Lipitor) 40 MG tablet Take 1 tablet by mouth Daily10/08/2023ctive cholestyramine light (Prevalite) 4 g packet Take 1 packet by mouth DailyActive hydroCHLOROthiazide (HYDRODiuril) 25 MG tablet Take 25 mg by mouth in the morning.Active hydroCHLOROthiazide (HYDRODiuril) 12.5 MG tablet Take 1 tablet by mouth Daily10/08/2023ctive levothyroxine (Synthroid, Levoxyl) 125 MCG tablet Take 1 tablet by mouth Daily10/10/2023ctive lisinopril 20 MG tablet Take 1 tablet by mouth Daily10/08/2023ctive metoprolol succinate XL (Toprol-XL) 50 MG 24 hr tablet Take 1 tablet by mouth Daily10/08/2023ctive Multiple Vitamins-Minerals (PreserVision/Lutein) capsule Take 1 capsule by mouth in the morning and 1 capsule in the evening.Active pantoprazole (ProtoNix) 40 MG EC tablet Take 40 mg by mouth in the morning. Take before meals.10/08/2023ctive sertraline (Zoloft) 100 MG tablet Take 2 tablets by mouth Daily10/08/2023ctive losartan (Cozaar) 50 MG tablet Take 1 tablet by mouth Daily5Active glycopyrrolate (Robinul) 1 MG tablet Indications:Primary focal hyperhidrosisTake 1 tablet (1 mg) by mouth in the morning and 1 tablet (1 mg) before bedtime. 60 tablet 1105011/10/2025ctive Active Problems No known active problems Family History Medical HistoryRelationNameCommentsCancerFatherJim HunkerCancerMotherAlyce HunkerRelationNameStatusCommentsFatherJim HunkerMotherAlyce [place] Social History Tobacco UseTypesPacks/DayYears UsedDateSmoking Tobacco: ThfzlwJjgqmryhzy770.5 08/27/1966 - 02/24/1983Smokeless Tobacco: Never Tobacco Cessation:Counseling Given: Not Answered Alcohol UseStandard Drinks/WeekCommentsNot Currently0 (1 standard drink = 0.6 oz pure alcohol)CommentsUnknownSex and Gender InformationValueDate Recorded Sex Assigned at KieowQzavxq09/08/2024 3:02 PM ESTLegal QsjAzsack68/15/2023 7:40 PM EDTGender JhcnfqtyDcrhav02/08/2024 3:02 PM ESTSexual OrientationNot on file Last Filed Vital Signs Vital SignReadingTime TakenCommentsBlood Qatsvjxe232/9610/10/2017 12:00 PM EST Pulse--Temperature--Respiratory Rate--Oxygen Saturation--Inhaled Oxygen Concentration--Weaylq14.3 kg (210 lb)10/10/2017 12:00 PM RBDBmbfia409.7 cm (5' 8 )09/25/2022 12:00 PM ESTBody Mass Index31.9310/10/2017 12:00 PM EST Plan of Treatment DateTypeDepartmentCare Team (Latest Contact Info)Hajrsmzuiry47/17/2026 1:00 PM EDTOffice Visit [facility] [address] [place] [address] Myranda Sanchez, JESSICA [address] [place] [address] Health MaintenanceDue DateLast DoneCommentsPneumococcal Vaccine: 65+ Years (2 of 2 - PCV), 02/09/2007COVID-19 Vaccine (3 - 2024- season) /, 01/18/2021Influenza Vaccine (#1), 07/17/2019, 06/13/2018, Additional history exists Insurance
--- OUTSIDE RECORDS SUMMARY | 2025-07-30 09:15 | XMS_ITS | Encounter Summary ---
Author Organization [facility] Address [address], [address] [place] [address] Care Team Providers Care Recruiting Consultant Name Role Phone Guido Christiansen MD Primary Care Provider [phone] Reason for Visit * ReasonOnset DateCommentslab work for next visit07/21/2025 Encounter Details DateTypeDepartmentCare Team (Latest Contact Info)Zptyatvbfmm81/25/2025Telephone [facility] Primary Care [address] [place] [address] [address] [place] [address] Guido Christiansen MD [address] [place], [place] [address]Amparo [facility] [address] [place] [address] lab work for next visit Social History Tobacco UseTypesPacks/DayYears UsedDateSmoking Tobacco: DrmrquIoqwlvitjz093 08/27/1972 - 08/27/1982Smokeless Tobacco: Never Comments:quit 1982 Alcohol UseStandard Drinks/WeekCommentsNever0 (1 standard drink = 0.6 oz pure alcohol)[facility] UtilitiesAnswerDate RecordedIn the past 12 months has [...] times a week10/30/2022How often do you attend uatsdin or confucianism services?More than 4 times per year10/30/2022o you belong to any clubs or organizations such as uatsdin groups, unions, fraternal or athletic groups, or school groups?Yes 10/30/2022How often do you attend meetings of the clubs or organizations you belong to?More than 4 times per year10/30/2022re you , , , , never , or living with a partner?Qaisnlet00/06/2023 AUDIT-CAnswerDate RecordedQ1: How often do you have [...] and heating?Not hard at all12/18/2023HQ-2AnswerDate RecordedPHQ-9 Total Ajpdu709Finfillmore community medical center [place] of Occupational Health - Occupational Stress QuestionnaireAnswerDate [...] before you got the money to buymore.Patient eeehpqcs17/27/2025 Within the past 12 months, the food you bought just didn't last and you didn't have money to get more.Patient amhqvhoj77/27/2025PRAPARE - TransportationAnswer Date RecordedIn the past 12 [...] steady place to sleep or slept in [facility] (including now)?No12/18/2023Housing Stability Vital SignAnswerDate RecordedIn the last 12 months, was there a time when you were not able to pay the mortgage or rent on time?No10/23/2024In the past 12 months, how many times have you moved where you were living?t any time in the past 12 months, were you homeless or living in a skilled nursing (including now)?No10/23/2024 AUDIT-CAnswerDate RecordedQ1: How often do [...] and Gender InformationValueDate Recorded Sex Assigned at HzueuMkniur94/04/2021 3:24 PM ESTLegal GnzMotcim06/10/2013 3:38 PM ESTGender QmmlbimgIstrrg68/04/2021 3:24 PM ESTSexual OrientationStraight 09/30/2020 3:24 PM ESTdocumented as of this encounter Plan of Treatment DateTypeDepartmentCare Team (Latest Contact Info)Okzmstdwezn91/09/2025 1:30 PM ESTOffice Visit [address] Nick [address] [place] [address] Guido Christiansen MD [address] [place] [address] Dr. Nick [address] [place] [address] f/u med xdkvietctf32/15/2026 1:30 PM EDTOffice Visit [address] Nick [facility] [place] [address] Guido Christiansen MD [address] [place] [address] Dr. Nick [address] [place] [address] AWV109/27/2025 2:00 PM ESTOffice Visit [facility] C[facility] Part of [address] [place] [address] Shan Romero MD [address] [place] [address] [place] [address] 1 yrdocumented as of this encounter Results * TSH (07/29/2025 9:39 AM EST)ComponentValueRef RangeTest MethodAnalysis Time Performed AtPathologist SignatureTSH1.950.27 - 4.20 uIU/mL07/29/2025 9:39 AM [facility] LABSpecimen (Source)Anatomical Location / LateralityCollection Method / VolumeCollection TimeReceived TimeBloodBLOOD SPECIMEN / Webikct0707/29/2025 9:39 AM EST07/29/2025 9:40 AM EST Narrative Authorizing ProviderResult TypeResult StatusStefan Iacob MDCHEMISTRY ORDERABLES Final ResultPerforming OrganizationAddressCity/State/ZIP CodePhone Number [facility] [address] [phone] * T4, Free (07/29/2025 9:39 AM EST)ComponentValueRef RangeTest MethodAnalysis TimePerformed AtPathologist SignatureT4 Free1.20.92 - 1.68 ng/dL07/29/2025 9:39 AM [facility]kuVET[facility]Court[facility] LABORATORIESSpecimen (Source)Anatomical Location / Laterality Collection Method / VolumeCollection TimeReceived TimeBloodBLOOD SPECIMEN / Smnxepg8207/29/2025 9:39 AM EST07/29/2025 9:40 AM EST Narrative Authorizing ProviderResult TypeResult StatusStefan Iacob MDCHEMISTRY ORDERABLES Final ResultPerforming OrganizationAddressCity/State/ZIP CodePhone Number [facility] [address] [place] [address], [facility] [phone] [phone] * Lipid Panel (07/29/2025 9:39 AM EST)ComponentValueRef RangeTest MethodAnalysis TimePerformed AtPathologist SignatureCholesterol, Mhtrq8222 - 199 mg/dL 07/29/2025 9:39 AM ESTMERCY LABORATORIESComment: Cholesterol Guidelines: <200 Desirable 200-240 ??Borderline >240 Undesirable HDL54>40 mg/dL07/29/2025 9:39 AM ESTMERCY LABORATORIESComment: HDL Guidelines: <40 Undesirable 40-59 ?Borderline >59 Desirable LDL Wigugynztuk690 - 100 mg/dL07/29/2025 9:39 AM ESTMERCY LABORATORIESComment: LDL Guidelines: <100 Desirable 100-129 ?? Near to/above Desirable 130-159 ?? Borderline >159 Undesirable Direct (measured) LDL and calculated LDL are not interchangeable tests. Chol/HDL Ratio3.0<5.012 9:39 AM ESTMERCourt[facility] Media AMPIAUOCJFNFDzhmkomwbbagj207 <150 mg/dL07/29/2025 9:39 AM ESTMERCourtview Media LABORATORIESComment: Triglyceride Guidelines: <150 Desirable 150-199 ??Borderline 200-499 ??High >499 Very high Based on AHA Guidelines for fasting triglyceride, May 2012. GDDA712 - 30 mg/dL07/29/2025 9:39 AM ESTMERCourt[facility] LABORATORIESSpecimen (Source) Anatomical Location / LateralityCollection Method / VolumeCollection Time Received TimeBloodBLOOD SPECIMEN / Nbfpexs4107/29/2025 9:39 AM EST07/29/2025 9:40 AM EST Narrative Authorizing ProviderResult TypeResult StatusStefan Iacob MDCHEMISTRY ORDERABLES Final ResultPerforming OrganizationAddressCity/State/ZIP CodePhone Number [facility] [address] [place] [address], [facility] [phone] [place] [address], [facility] [phone] * Vitamin D 25 Hydroxy (07/29/2025 9:38 AM EST)ComponentValueRef RangeTest MethodAnalysis TimePerformed AtPathologist SignatureVit D, 25-Ivvpvou99.230.0 - 100.0 ng/mL07/29/2025 9:38 AM AdkuMERCourtview Media LABORATORIESComment: Reference Range: Vitamin D status ? Range Deficiency <20 ng/mL Mild Deficiency ? 20-30 ng/mL Sufficiency ?30-100 ng/mL Toxicity >100 ng/mL Specimen (Source)Anatomical Location / LateralityCollection Method / Volume Collection TimeReceived TimeBloodBLOOD SPECIMEN / Iojngtx5807/29/2025 9:38 AM EST 07/29/2025 9:39 AM EST Narrative Authorizing ProviderResult TypeResult StatusStefan Iacob MDCHEMISTRY ORDERABLES Final ResultPerforming OrganizationAddressCity/State/ZIP CodePhone Number [facility] [address] [phone] [phone] * T3, Free (07/29/2025 9:38 AM EST)ComponentValueRef RangeTest MethodAnalysis TimePerformed AtPathologist SignatureT3, Free2.362.00 - 4.40 pg/mL07/29/2025 9:38 AM [facility] LABORATORIESSpecimen (Source)Anatomical Location / Laterality Collection Method / VolumeCollection TimeReceived TimeBloodBLOOD SPECIMEN / Tqmiive8707/29/2025 9:38 AM EST07/29/2025 9:39 AM EST Narrative Authorizing ProviderResult TypeResult StatusStefan Iacob MDCHEMISTRY ORDERABLES Final ResultPerforming OrganizationAddressCity/State/ZIP CodePhone Number [facility] [address] [place] [address] [phone] * (ABNORMAL) Comprehensive Metabolic Panel (07/29/2025 9:38 AM EST)Component ValueRef RangeTest MethodAnalysis TimePerformed AtPathologist SignatureSodium 524815 - 145 mmol/L109/29/2024 9:38 AM [facility] Potassium3.83.7 - 5.3 mmol/L109/29/2024 9:38 AM [facility] SRNEbhcceaz76454 - 107 mmol/L109/29/2024 9:38 AM [facility] LGDWS44100 - 31 mmol/L109/29/2024 9:38 AM [facility] LABAnion Gga767 - 16 mmol/L109/29/2024 9:38 AM [facility] NZRKxpxiuj475(H)74 - 99 mg/dL07/29/2025 9:38 AM [facility] MHBDWS447 - 23 mg/dL07/29/2025 9:38 AM [facility] LABCreatinine1.1(H)0.50 - 0.90 mg/dL07/29/2025 9:38 AM [facility] LABEst Glojyothi Filt Rate53(L)>60 mL/min/1.98b56007/29/2025 9:38 AM [facility] LABComment: ? These results are not intended [...] that affects renal tubular secretion. BUN/Creatinine Ratio21(H) 9:38 AM [facility] LABCalcium9.28.6 - 10.4 mg/dL07/29/2025 9:38 AM [facility] LABTotal Protein6.66.6 - 8.7 g/dL07/29/2025 9:38 AM [facility] LABAlbumin4.33.5 - 5.2 g/dL07/29/2025 9:38 AM [facility] LABAlbumin/Globulin Ratio1.81.0 - 2.512 9:38 AM [facility] LABTotal Bilirubin0.50.00 - 1.20 mg/dL07/29/2025 9:38 AM [facility] LABAlkaline Vffhlkyhrjj0190 - 104 U/L109/29/2024 9:38 AM [facility] PYMVFE9456 - 35 U/L109/29/2024 9:38 AM [facility] XGUNMI5040 - 35 U/L109/29/2024 9:38 AM [facility] LABSpecimen (Source)Anatomical Location / Laterality Collection Method / VolumeCollection TimeReceived TimeBloodBLOOD SPECIMEN / Rkwkvro5807/29/2025 9:38 AM EST07/29/2025 9:39 AM EST Narrative Authorizing ProviderResult TypeResult StatusStefan Iacob MDCHEMISTRY ORDERABLES Final ResultPerforming OrganizationAddressCity/State/ZIP CodePhone Number [facility] [address] [place] [address], [facility] [phone] * (ABNORMAL) CBC with Auto Differential (07/29/2025 9:38 AM EST)ComponentValue Ref RangeTest MethodAnalysis TimePerformed AtPathologist SignatureWBC4.23.5 - 11.3 k/uL07/29/2025 9:38 AM [facility] LABRBC4.353.95 - 5.11 m/uL07/29/2025 9:38 AM [facility] DBCAnlabmarxj00.5 11.9 - 15.1 g/dL07/29/2025 9:38 AM [facility] Cfmzdqioyv29.236.3 - 47.1 %07/29/2025 9:38 AM [facility] JMMIDG97.782.6 - 102.9 fL07/29/2025 9:38 AM [facility] BWBIJC93.025.2 - 33.5 pg07/29/2025 9:38 AM [facility] MCHC32.828.4 - 34.8 g/dL07/29/2025 9:38 AM [facility] RDW13.511.8 - 14.4 %07/29/2025 9:38 AM [facility] Jevsdwpdw865282 - 453 k/uL07/29/2025 9:38 AM [facility] LABMPV9.98.1 - 13.5 fL07/29/2025 9:38 AM [facility] NRBC Automated0.00.0 per 100 WBC07/29/2025 9:38 AM [facility] LABNeutrophils %68(H)36 - 65 %07/29/2025 9:38 AM [facility] LABLymphocytes %22(L)24 - 43 %07/29/2025 9:38 AM [facility] LABMonocytes %73 - 12 %07/29/2025 9:38 AM [facility] LABEosinophils %21 - 4 %07/29/2025 9:38 AM [facility] LABBasophils %10 - 2 %07/29/2025 9:38 AM [facility] LABImmature Granulocytes %00 %07/29/2025 9:38 AM EST [facility] LABNeutrophils Absolute2.831.50 - 8.10 k/uL 07/29/2025 9:38 AM [facility] LABLymphocytes Absolute0.92 (L)1.10 - 3.70 k/uL07/29/2025 9:38 AM [facility] Monocytes Absolute0.300.10 - 1.20 k/uL07/29/2025 9:38 AM [facility] LABEosinophils Absolute0.100.00 - 0.44 k/uL07/29/2025 9:38 AM [facility] LABBasophils Absolute0.050.00 - 0.20 k/uL 07/29/2025 9:38 AM [facility] LABImmature Granulocytes Absolute<0.030.00 - 0.30 k/uL07/29/2025 9:38 AM [facility] LABSpecimen (Source)Anatomical Location / LateralityCollection Method / VolumeCollection TimeReceived TimeBloodBLOOD SPECIMEN / Giwvlap8507/29/2025 9:38 AM EST07/29/2025 9:39 AM EST Narrative Authorizing ProviderResult TypeResult StatusStefan Елена BOSTONHEMATOLOGY ORDERABLES Final ResultPerforming OrganizationAddressCity/State/ZIP CodePhone Number [facility] [address] [phone] documented in this encounter Visit Diagnoses Diagnosis Hypovitaminosis D- Primary Unspecified vitamin D deficiency Hypothyroidism, unspecified type Lipid screening Screening for lipoid disorders documented in this encounter Additional Health Concerns AssessmentNoted TimeA fall risk assessment has been completed for the patient 04/28/2025 2:34 PM EDTdocumented as of this encounter Care Teams Team MemberRelationshipSpecialtyStart DateEnd Date Guido Christiansen MD [address] [place] [address] PCP - GeneralFamily Medicine01/01/23documented as of this encounter
--- OUTSIDE RECORDS SUMMARY | 2025-07-30 09:16 | XMS_ITS | Clinical Summary ---
Author Organization [facility] Address [address], [address] [place] [address] Care Team Providers Care Clinical Laboratory Scientist Name Role Phone Guido Christiansen MD Primary Care Provider [phone] Allergies Active AllergyReactionsCriticalityNoted DateCommentsOmeprazoleAnaphylaxisHigh 08/11/2019Prochlorperazine UpgveeybdHanjvvimwfaVpny40/29/2013 COMPAZINE Patient tolerates phenergan without complications Medications MedicationSigDispense QuantityRefillsLast FilledStart DateEnd DateStatus Calcium Carbonate-Vitamin D (CALCIUM 600+D PO) Take 600 mg by mouth in the morning and at bedtimeActive glycopyrrolate (ROBINUL) 1 MG tablet Take 1 tablet by mouth in the morning and 1 tablet in the evening.04/20/2021 Active albuterol sulfate HFA (VENTOLIN HFA) 108 (90 Base) MCG/ACT inhaler Indications:Shortness of breathInhale 2 puffs into the lungs 4 times daily as needed for Wheezing or Shortness of Breath 18 g 3Active pantoprazole (PROTONIX) 40 MG tablet Indications:Gastroesophageal reflux disease, unspecified whether esophagitis presentTake 1 tablet by mouth every morning (before breakfast) 90 tablet ctive hydroCHLOROthiazide (HYDRODIURIL) 25 MG tablet Indications:Primary hypertensionTAKE 1 TABLET EVERY MORNING 90 tablet 5Active sertraline (ZOLOFT) 100 MG tablet Indications:AnxietyTAKE 2 TABLETS ONCE DAILY 180 tablet 5Active atorvastatin (LIPITOR) 40 MG tablet Indications:Mixed hyperlipidemiaTAKE 1 TABLET DAILY 90 tablet 5Active aspirin 81 MG EC tablet Take 1 tablet by mouth daily 90 tablet 5Active losartan (COZAAR) 50 MG tablet Indications:Primary hypertensionTake 1 tablet by mouth daily 90 tablet 5Active SYNTHROID 125 MCG tablet TAKE 1 TABLET BY MOUTH DAILY 90 tablet 07/06/2025tive metoprolol succinate (TOPROL XL) 50 MG extended release tablet Indications:Coronary artery calcification,Essential hypertension,Mixed hyperlipidemia,SOB (shortness of breath),Palpitations,Moderate mitral regurgitation,Primary hypertensionTake 1 tablet by mouth daily 90 tablet 5Active levothyroxine (SYNTHROID) 125 MCG tablet Take 1 tablet by mouth Daily Synthroid Brand only 90 tablet Discontinued metoprolol succinate (TOPROL XL) 50 MG extended release tablet Indications:Coronary artery calcification,Essential hypertension,Mixed hyperlipidemia,SOB (shortness of breath),Palpitations,Moderate mitral regurgitation,Primary hypertensionTake 1 tablet by mouth in the morning and at bedtime 180 tablet Discontinued metoprolol succinate (TOPROL XL) 50 MG extended release tablet Indications:Coronary artery calcification,Essential hypertension,Mixed hyperlipidemia,SOB (shortness of breath),Palpitations,Moderate mitral regurgitation,Primary hypertensionTake 1 tablet by mouth daily 90 tablet Discontinued metoprolol succinate (TOPROL XL) 50 MG extended release tablet Indications:Coronary artery calcification,Essential hypertension,Mixed hyperlipidemia,SOB (shortness of breath),Palpitations,Moderate mitral regurgitation,Primary hypertensionTake 1 tablet by mouth in the morning and at bedtime 90 tablet Discontinued Active Problems ProblemNoted DateDiagnosed DateAbnormal stress test06/03/2025Diastolic congestive heart failure, unspecified HF hmufffisph65/13/2025Type 2 diabetes mellitus with other specified complication, unspecified whether termite exterminator insulin use11/06/20240295Beslzjh72/05/4622Qrrhuohhqs79/05/2024MI 34.0-34.9,adult 07/31/2024UQ abdominal pain01/22/2024onjunctivitis of left eye12/18/2023Other tqrkcco0610/08/2023Hypovitaminosis D010/08/2023Severe obesity (BMI 35.0-39.9) with hoalijbaztp15/08/2023Recurrent major depressive dzhbrzut59/08/2023utoimmune uihvqzxszmy62/05/2023ostoperative aonfpnoemovkuk41/05/2023rimary hypertension 02/19/20236344Nvpqzuarpeqnik34/26/8379Ktmo71/26/2023astroesophageal reflux disease 01/15/2023Shortness of bhyhuv4801/15/20234367Shzjrmqc95/08/2023Full thickness rotator cuff tear05/04/2022Localized, primary osteoarthritis of shoulder region 05/04/2022ecurrent major depressive disorder, in pivxcaeug21/26/2018Mixed rgrrvrodqbnbig70/31/2016Sebaceous cyst12/21/2015Essential mzqmxexrvgfl01/23/2015 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 Overview (02/14/2013): GRAVES Resolved Problems ProblemNoted DateDiagnosed DateResolved DateMedicare annual wellness visit, gdajlkfagm13/09/202510/ushing's medenpzu50Screen for colon mvbzmy7108/23/202001/1S/P left unicompartmental knee replacement Encounters DateTypeDepartmentCare MnoeNdqubplyoiq77/03/2025 12:10 AM EST - 07/29/2025 11:59 PM ESTHospital Encounter [facility] [address] [place] [address] Hypovitaminosis D; Hypothyroidism, unspecified type; Lipid screening Discharge Disposition: Home or Self Care07/28/2025Telephone [facility] Part of [address] [phone] Shan Romero MD co founder and chief strategy officer vyxytmht13/25/2025Telephone [facility] [address] [place] [address] [address] [place] [address] Guido Christiansen MD lab work for next visit07/16/2025 8:40 AM ESTOffice Visit [facility] Part of [address] [place] [address] Shan Romero MD Coronary artery calcification; Essential hypertension; Mixed hyperlipidemia; SOB (shortness of breath); Palpitations; Moderate mitral regurgitation; Primary qjvuzbmewlni10/19/2025[facility] Part of [address] [place] [address] Shan Romero MD New Med Jcbfhnh6307/05/2025[facility] [address] [place] [address] [address] [place] [address] Guido Christiansen MD Medication Vnxepm2306/18/2025 9:00 AM EDT - 06/18/2025 10:00 AM EDTSurgery [facility] [address] [place] [address] Bruce Schilling MD Left heart cath / coronary mdgolwkzevx91/23/2025 7:53 AM EDT - 06/18/2025 12:20 PM EDTHospital Encounter [facility] [address] [place] [address] Bruce Schilling MD Abnormal stress test Discharge Disposition: Home or Self Care06/18/20253574Rtnqad79/20/2025[facility] [address] [place] [address] [address] [place] [address] Guido Christiansen MD Medication Kmzdsb9306/12/2025Results Follow-Up [address] [place] [address] Guido Christiansen MD 06/11/2025 2:40 PM EDT - 06/11/2025 11:59 PM EDTHospital Encounter [facility] [address] [place] [address] 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 Discharge Disposition: Home or Self Care06/08/2025Results Follow-Up [facility]ARDI[facility] Part [address] [address] Scarlett Parker APRN - CNP Zfgcpho1406/04/2025 3:37 PM EDT - 06/04/2025 11:59 PM EDTHospital Encounter [address] [phone] Chest pain, unspecified type; SOB (shortness of breath); Palpitations; Abnormal stress test Discharge Disposition: Home or Self Care06/03/2025 11:00 AM EDTOffice Visit [facility] [address] [address] Scarlett Parker APRN - CNP Abnormal stress test (Primary Dx); Chest pain, unspecified type; Coronary artery calcification; Essential hypertension; Mixed hyperlipidemia; SOB (shortness of breath); Palpitations; Moderate mitral regurgitation; Primary hypertension; Chronic fatigue; Class 1 obesity with body mass index (BMI) of 34.0 to 34.9 in adult, unspecified obesity type, unspecified whether serious comorbidity betxwin1506/03/2025bstract [facility] Part [address] [address] Daniella Mueller MA 06/01/2025Telephone [facility] [address] [place] [address] [address] [place] [address] Guido Christiansen MD ED Follow-up05/29/2025 11:53 AM EDT - 05/29/2025 1:01 PM EDTEmergency [facility] [address] [place] [address] Maria Esther Adhikari MD Acute sinusitis, recurrence not specified, unspecified location (Primary Dx) Discharge Disposition: Home or Self Care05/29/20256004Ybmeld25/28/2025Refill [facility] [address] [place] [address] [address] [place] [address] Guido Christiansen MD Medication Cihzps9905/20/2025Telephone [facility] Part of [address] [address] Shan Romero MD Jrhhgvx6005/12/2025 1:08 PM EDT - 05/14/2025 11:59 PM EDTHospital Encounter [address] [address] Shan Romero MD Discharge Disposition: Home or Self Care05/12/2025 12:11 PM EDT - 05/14/2025 11:59 PM EDTHospital Encounter [address] [address] Shan Romero MD Discharge Disposition: Home or Self Care05/11/2025 8:07 AM EDT - 05/13/2025 11:59 PM EDTHospital Encounter [address] [address] Shan Romero MD Discharge Disposition: Home or Self Care05/11/2025 8:06 AM EDT - 05/13/2025 11:59 PM EDTHospital Encounter [facility] Non-Invasive Cardiology [address] [place], [place] [phone] Shan Romero MD Chest pain, unspecified type Discharge Disposition: Home or Self Care05/08/2025Results Follow-Up [facility] Part of [address] [address] Analy Maharaj, [employer] Zkbdcjc0005/05/2025 [address] [facility] [address] [place] [address] [address] [place] [address] Guido Christiansen MD Medicare annual wellness visit, subsequent (Primary Dx); Type 2 diabetes mellitus with other specified complication, unspecified whether mcfp insulin use (HCC); Anxiety; Primary hypertension; Mixed hyperlipidemia; Hypothyroidism, unspecified type04/28/2025 9:59 AM EDT - 04/30/2025 11:59 PM EDT Hospital Encounter [facility]-Invasive Cardiology [address] [place] [address] Coronary artery calcification; Essential hypertension; Mixed hyperlipidemia; SOB (shortness of breath); Palpitations; Moderate mitral regurgitation; Primary hypertension Discharge Disposition: Home or Self Carefrom Last 3 Months Immunizations ImmunizationAdministration DatesNext DueCOVID-19, Inactive, MODERNA BLUE border, Primary or Immunocompromised, (age 12y+)02/15/2021,01/18/2021Influenza Vaccine, unspecified mvlcbgmmynv83/10/2017Influenza Virus Vcvwucy3307/17/2019,06/13/2018, 06/05/2016Influenza, FLUAD, (age 65 y+), IM, Quadv, 0.5mL06/06/2020Pneumococcal, PPSV23, PNEUMOVAX 23, (age 2y+), SC/IM, 0.5mL06/07/2018,02/09/2007TDaP, ADACEL (age 10y-64y), BOOSTRIX (age 10y+), IM, 0.5mL07/31/2020Zoster Live (Zostavax) 02/09/2007 Family History Medical HistoryRelationNameCommentsCOPDFatherGeorgeCancerFatherGeorgeBreast CancerMaternal AuntThelmaCancerMaternal AuntThelmaCancerMotherAlyceLupusMother AlyceAllergiesSisterKarenArthritisSisterKarenHigh Blood PressureSisterKarenHigh CholesterolSisterKarenOsteoporosisSisterKarenOtherSisterKarenafibRelationName StatusCommentsFatherGeorgeDeceasedMaternal AuntThelmaMotherAlyceDeceasedSister KarenAlive Social History Tobacco UseTypesPacks/DayYears UsedDateSmoking Tobacco: BiolhfJpthtkysej937 08/27/1972 - 08/27/1982Smokeless Tobacco: Never Tobacco Cessation:Counseling Given: Not Answered Comments:quit 1982 Alcohol UseStandard Drinks/WeekCommentsNever0 (1 standard drink = 0.6 oz pure alcohol)[facility] UtilitiesAnswerDate RecordedIn the past 12 months has the [employer], oil, or water [employer] threatened to shut off services in your [...] times a week10/30/2022How often do you attend hoahaoism or samaritan services?More than 4 times per year10/30/2022o you belong to any clubs or organizations such as hoahaoism groups, unions, fraternal or athletic groups, or school groups?Yes 10/30/2022How often do you attend meetings of the clubs or organizations you belong to?More than 4 times per year10/30/2022re you , , , , never , or living with a partner?Kybsncoh70/06/2023 AUDIT-CAnswerDate RecordedQ1: How often do you have [...] and heating?Not hard at all12/18/2023HQ-2AnswerDate RecordedPHQ-9 Total Hyiyr245Finmountain west medical center [place] of Occupational Health - Occupational Stress QuestionnaireAnswerDate [...] before you got the money to buymore.Patient kfugeics60/27/2025 Within the past 12 months, the food you bought just didn't last and you didn't have money to get more.Patient abyckugm57/27/2025PRAPARE - TransportationAnswer Date RecordedIn the past 12 [...] steady place to sleep or [facility] in [facility] (including now)?No12/18/2023Housing Stability Vital SignAnswerDate RecordedIn the last 12 months, was there a time when you were not able to pay the mortgage or rent on time?No10/23/2024In the past 12 months, how many times have you moved where you were living?t any time in the past 12 months, were you homeless or living in a intermediate (including now)?No10/23/2024 AUDIT-CAnswerDate RecordedQ1: How often do [...] and Gender InformationValueDate Recorded Sex Assigned at HxphcTlgpcd90/04/2021 3:24 PM ESTLegal SuyTgbwnm74/10/2013 3:38 PM ESTGender UabuocyzDxpjhj12/04/2021 3:24 PM ESTSexual OrientationStraight 09/30/2020 3:24 PM EST Last Filed Vital Signs Vital SignReadingTime TakenCommentsBlood Zmovyyjb540/8211 8:30 AM EST Voenp191507/16/2025 8:30 AM STRNhvofwlhelb51.4 ??C (97.5 ??F)06/18/2025 10:00 AM EDTRespiratory Ynan606309/15/2024 8:30 AM ESTOxygen Mbgcjtpldk47%07/16/2025 8:30 AM ESTInhaled Oxygen Concentration--Ztzfke159.3 kg (230 lb)07/16/2025 8:30 AM XQDRoetbb158.7 cm (5' 8 )07/16/2025 8:30 AM ESTBody Mass Index34.9707/16/2025 8:30 AM EST Plan of Treatment DateTypeDepartmentCare Team (Latest Contact Info)Woiygqkqjex95/09/2025 [address] [facility] [address] [place] [address] [address] [place] [address] Guido Christiansen MD [address] [facility] [place] [address] f/u med hibebhrsti27/ 1:[address] [facility] [address] [place] [address] Guido Christiansen MD [address] [place] [address] AWV109/27/2025 2:00 PM ESTOffice Visit [facility] Part of [facility] [address] [place] [address] Shan Romero MD [address] [facility] [place] [address] 1 yrHealth MaintenanceDue DateLast DoneCommentsDiabetic Alb to Cr ratio (uACR) test1964Shingles vaccine (2 of 3)Pneumococcal 50+ years Vaccine (2 of 2 - PCV), 02/09/2007Respiratory Syncytial Virus (RSV) or age 60 yrs+ (1 - 1-dose 75+ series)2021 Flu vaccine (#1), 07/17/2019, 06/13/2018, Additional history existsCOVID-19 Vaccine (3 - 2024- season)/, 01/18/2021 Depression Bgkqcdancn53/09/202609/04/2025, 05/05/2025nnual Wellness Visit (Medicare)/04/2025, 05/01/2024, 10/30/2022, Additional history existsGFR test (Diabetes, CKD 3-4, OR last GFR 15-59)/10/2024, 06/04/2025, 10/29/2024, Additional history sazwfnXzmvhn39/03/202612/10/2024, 10/29/2024, 07/21/2024, Additional history existsDTaP/Tdap/Td vaccine (2 - Td or Tdap)Hepatitis C geeoerCrkeqiyxr21/31/2017, 12/21/2015 (Declined)FIT/FOBT: Average gyqhKkthjnxcjncr80/25/2020, 11/19/2018Colonoscopy Qieoeoasncsy59/28/2020, 08/23/2020, 01/22/2006 (Previously completed)Colorectal Cancer ScreenDiscontinuedDEXA (modify frequency per FRAX score)Completed 11/23/2021, 02/04/2014reast cancer nlhmifJleyqrzrbudk32/14/2024, 01/26/2023, 11/23/2021, Additional history iinccoV9S test (Diabetic or Prediabetic) Vnrjlcbcrtgo08/05/2025, 06/04/2024, 04/25/2022, Additional history existsFecal- DNA (Cologuard): Average riskDiscontinuedHepatitis A vaccineAged OutNo longer eligible based on patient's age to complete this topicHepatitis B vaccineAged OutNo longer eligible based on patient's age to complete this topicHib vaccine Aged OutNo longer eligible based on patient's age to complete this topic Meningococcal (ACWY) vaccineAged OutNo longer eligible based on patient's age to complete this topicMeningococcal B vaccineAged OutNo longer eligible based on patient's age to complete this topicPolio vaccineAged OutNo longer eligible based on patient's age to complete this topicSigmoidoscopy/CT colonography Discontinued Medical Devices ImplantedTypeAreaManufacturerDevice IdentifierShelf Expiration DateModel / Serial / LotCement Bone R 1x40 Us Implanted:Qty: 1 on 09/01/2019 by [facility]: [employer]-[id number] / / [id number] Bone R 1x40 Us Implanted:Qty: 1 on 09/01/2019 by [facility]: [employer]-[id number] / / [id number] Knee Psn Stib Stm 5deg Jesus Manuel R Implanted:Qty: 1 on 09/01/2019 by Marc Edmond MD at [facility]: [employer]-PMM05/26/[id number] / / [id number] Knee Psn Fem Cr Cmt Ccr Nrw Sz9 R Implanted:Qty: 1 on 09/01/2019 by Marc Edmond MD at [facility]: [employer]-PMM109/25/[id number] / / [id number] Knee Patella Nxgn All Poly 8.5x32mm Implanted:Qty: 1 on 09/01/2019 by Marc Edmond MD at [facility]: [employer]-PMM02/23/[id number] / / [id number] Knee Psn Mc Ve Asf R 10mm 8 11 Ef Implanted:Qty: 1 on 09/01/2019 by Marc Edmond MD at [facility]: [employer]-PMM/[id number] / / [id number] IdentifierShelf Expiration DateModel / Serial / LotScrew Mis Headed 48mm Explanted:Qty: 2 on 09/01/2019 [facility]ail/Rod[employer]-PMM1/[id number] / / [id number] Procedures Procedure NamePriorityDate/TimeAssociated DiagnosisCommentsLIPID PANELRoutine 07/29/2025 9:39 AM EST Lipid screening T4, TONXVpdablr31/03/2025 9:39 AM EST Hypothyroidism, unspecified type IWFCvaxahm28/03/2025 9:39 AM EST Hypothyroidism, unspecified type T3, VTZDDfhxmxs02/03/2025 9:38 AM EST Hypothyroidism, unspecified type COMPREHENSIVE METABOLIC GIBRTPjqjuws44/03/2025 9:38 AM EST Hypothyroidism, unspecified type CBC WITH AUTO BQNLOESJQORCMtzucql14/03/2025 9:38 AM EST Hypothyroidism, unspecified type VITAMIN D 25 RRAZRQUJxwelui02/03/2025 9:38 AM EST Hypovitaminosis D LEFT HEART CATH / CORONARY GUXSFUFUGJDEaviqjy41/23/2025 9:59 AM EDT Abnormal stress test T4, JLBJEfdashb58/16/2025 2:41 PM EDT 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 ZPZRwsmsyw29/16/2025 2:41 PM EDT 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 T3, NGJYKuwlqki40/16/2025 2:40 PM EDT 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 BASIC METABOLIC EJYJHUhtqqnx65/09/2025 3:40 PM EDT Chest pain, unspecified type SOB (shortness of breath) Palpitations Abnormal stress test ZCKGeoxbnq41/09/2025 3:40 PM EDT Chest pain, unspecified type SOB (shortness of breath) Palpitations Abnormal stress test NM LEXISCAN STRESS TEST W/ MYOCARDIAL DVPDDBHSGCnjkxnh01/16/2025 1:13 PM EDT Chest pain, unspecified type HEMOGLOBIN X1VWltzszh56/05/2025 10:40 AM EST Type 2 diabetes mellitus with other specified complication, unspecified whether termite exterminator insulin use (HCC) KARRIE DON DIGITAL SCREEN SELF REFERRAL W OR WO CAD YLUAUNNSNPyrlxay92/14/2024 1:33 PM EDT Screening breast examination DEXA BONE DENSITY AXIAL AOTLXWAFSmnwdua67/30/2022 11:33 AM EDT Post menopausal syndrome COLONOSCOPY RFMYMGUVPGirqcvi95/28/2020 8:11 AM EST POCT FECAL IMMUNOCHEMICAL TEST (FIT)Pdgephy7605/21/2020 9:20 AM EDT Screening for colon cancer HEPATITIS C LOVPMHNOUtiwcni39/31/2017 8:54 AM EDT Screening from Last 3 Months or Most Recently Relevant to Health Maintenance Results * TSH (07/29/2025 9:39 AM EST) Only the most recent of2 resultswithin the time period is included. ComponentValueRef RangeTest MethodAnalysis TimePerformed AtPathologist Signature TSH1.950.27 - 4.20 uIU/mL07/29/2025 9:39 AM [facility] Specimen (Source)Anatomical Location / LateralityCollection Method / Volume Collection TimeReceived TimeBloodBLOOD SPECIMEN / Rklxzrm1907/29/2025 9:39 AM EST 07/29/2025 9:40 AM EST Narrative Authorizing ProviderResult TypeResult StatusStefan Iacob MDCHEMISTRY ORDERABLES Final ResultPerforming OrganizationAddressCity/State/ZIP CodePhone Number [facility] [address] [place] [address] * T4, Free (07/29/2025 9:39 AM EST) Only the most recent of2 resultswithin the time period is included. ComponentValueRef RangeTest MethodAnalysis TimePerformed AtPathologist Signature T4 Free1.20.92 - 1.68 ng/dL07/29/2025 9:39 AM [facility] LABORATORIESSpecimen (Source)Anatomical Location / LateralityCollection Method / VolumeCollection TimeReceived TimeBloodBLOOD SPECIMEN / Ulsudbm2607/29/2025 9:39 AM EST07/29/2025 9:40 AM EST Narrative Authorizing ProviderResult TypeResult StatusStefan Iacob MDCHEMISTRY ORDERABLES Final ResultPerforming OrganizationAddressCity/State/ZIP CodePhone Number [facility] [address] [place] [address], [facility] [phone] [employer] [address] [place] [address] * Lipid Panel (07/29/2025 9:39 AM EST)ComponentValueRef RangeTest MethodAnalysis TimePerformed AtPathologist SignatureCholesterol, Ujihn0819 - 199 mg/dL 07/29/2025 9:39 AM [facility] LABORATORIESComment: Cholesterol Guidelines: <200 Desirable 200-240 ??Borderline >240 Undesirable HDL54>40 mg/dL07/29/2025 9:39 AM ESTTheatro LABORATORIESComment: HDL Guidelines: <40 Undesirable 40-59 ?Borderline >59 Desirable LDL Yigpguuzykc649 - 100 mg/dL07/29/2025 9:39 AM ESTTheatro LABORATORIESComment: LDL Guidelines: <100 Desirable 100-129 ?? Near to/above Desirable 130-159 ?? Borderline >159 Undesirable Direct (measured) LDL and calculated LDL are not interchangeable tests. Chol/HDL Ratio3.0<5. 9:39 AM [facility] IWBERMIUKLEYIfhppauvgexsp454 <150 mg/dL07/29/2025 9:39 AM [facility] LABORATORIESComment: Triglyceride Guidelines: <150 Desirable 150-199 ??Borderline 200-499 ??High >499 Very high Based on AHA Guidelines for fasting triglyceride, May 2012. RVJX444 - 30 mg/dL07/29/2025 9:39 AM [facility] LABORATORIESSpecimen (Source) Anatomical Location / LateralityCollection Method / VolumeCollection Time Received TimeBloodBLOOD SPECIMEN / Erxwqwz2907/29/2025 9:39 AM EST07/29/2025 9:40 AM EST Narrative Authorizing ProviderResult TypeResult StatusStefan Iacob MDCHEMISTRY ORDERABLES Final ResultPerforming OrganizationAddressCity/State/ZIP CodePhone Number [facility] [address] [place] [address], [facility] [phone] [facility] [address] [place] [address], [facility] [phone] * (ABNORMAL) CBC with Auto Differential (07/29/2025 9:38 AM EST)ComponentValue Ref RangeTest MethodAnalysis TimePerformed AtPathologist SignatureWBC4.23.5 - 11.3 k/uL07/29/2025 9:38 AM [facility] LABRBC4.353.95 - 5.11 m/uL07/29/2025 9:38 AM [facility] XXCKeusiptenc30.5 11.9 - 15.1 g/dL07/29/2025 9:38 AM [facility] Vpdpnhyclu02.236.3 - 47.1 %07/29/2025 9:38 AM [facility] RABYJT30.782.6 - 102.9 fL07/29/2025 9:38 AM [facility] VHYYUQ85.025.2 - 33.5 pg07/29/2025 9:38 AM [facility] MCHC32.828.4 - 34.8 g/dL07/29/2025 9:38 AM [facility] RDW13.511.8 - 14.4 %07/29/2025 9:38 AM [facility] Ixfocyigi817258 - 453 k/uL07/29/2025 9:38 AM [facility] LABMPV9.98.1 - 13.5 fL07/29/2025 9:38 AM [facility] NRBC Automated0.00.0 per 100 WBC07/29/2025 9:38 AM [facility] LABNeutrophils %68(H)36 - 65 %07/29/2025 9:38 AM [facility] LABLymphocytes %22(L)24 - 43 %07/29/2025 9:38 AM [facility] LABMonocytes %73 - 12 %07/29/2025 9:38 AM [facility] LABEosinophils %21 - 4 %07/29/2025 9:38 AM [facility] [facility] LABBasophils %10 - 2 %07/29/2025 9:38 AM [facility] LABImmature Granulocytes %00 %07/29/2025 9:38 AM [facility] LABNeutrophils Absolute2.831.50 - 8.10 k/uL 07/29/2025 9:38 AM [facility] LABLymphocytes Absolute0.92 (L)1.10 - 3.70 k/uL07/29/2025 9:38 AM [facility] Monocytes Absolute0.300.10 - 1.20 k/uL07/29/2025 9:38 AM [facility] LABEosinophils Absolute0.100.00 - 0.44 k/uL07/29/2025 9:38 AM [facility] LABBasophils Absolute0.050.00 - 0.20 k/uL 07/29/2025 9:38 AM [facility] LABImmature Granulocytes Absolute<0.030.00 - 0.30 k/uL07/29/2025 9:38 AM [facility] LABSpecimen (Source)Anatomical Location / LateralityCollection Method / VolumeCollection TimeReceived TimeBloodBLOOD SPECIMEN / Ctjcgtc3107/29/2025 9:38 AM EST07/29/2025 9:39 AM EST Narrative Authorizing ProviderResult TypeResult StatusStefmikey Christiansen MDHEMATOLOGY ORDERABLES Final ResultPerforming OrganizationAddressCity/State/[facility] CodePhone Number [facility] [address] [place] [address] * Vitamin D 25 Hydroxy (07/29/2025 9:38 AM EST)ComponentValueRef RangeTest MethodAnalysis TimePerformed AtPathologist SignatureVit D, 25-Ndnsuqt63.230.0 - 100.0 ng/mL07/29/2025 9:38 AM [facility]IESComment: Reference Range: Vitamin D status ? Range Deficiency <20 ng/mL Mild Deficiency ? 20-30 ng/mL Sufficiency ?30-100 ng/mL Toxicity >100 ng/mL Specimen (Source)Anatomical Location / LateralityCollection Method / Volume Collection TimeReceived TimeBloodBLOOD SPECIMEN / Cdauycs2207/29/2025 9:38 AM EST 07/29/2025 9:39 AM EST Narrative Authorizing ProviderResult TypeResult StatusStefmikey Christiansen MDCHEMISTRY ORDERABLES Final ResultPerforming OrganizationAddressCity/State/ZIP CodePhone Number [facility] [address] [place] [address] [phone] * T3, Free (07/29/2025 9:38 AM EST) Only the most recent of2 resultswithin the time period is included. ComponentValueRef RangeTest MethodAnalysis TimePerformed AtPathologist Signature T3, Free2.362.00 - 4.40 pg/mL07/29/2025 9:38 AM [facility] LABORATORIESSpecimen (Source)Anatomical Location / LateralityCollection Method / VolumeCollection TimeReceived TimeBloodBLOOD SPECIMEN / Wfbrzpp7107/29/2025 9:38 AM EST07/29/2025 9:39 AM EST Narrative Authorizing ProviderResult TypeResult StatusStefan Iacob MDCHEMISTRY ORDERABLES Final ResultPerforming OrganizationAddressCity/State/ZIP CodePhone Number [facility] [address] [place] [address] [phone] * (ABNORMAL) Comprehensive Metabolic Panel (07/29/2025 9:38 AM EST)Component ValueRef RangeTest MethodAnalysis TimePerformed AtPathologist SignatureSodium 384497 - 145 mmol/L109/29/2024 9:38 AM [facility] Potassium3.83.7 - 5.3 mmol/L109/29/2024 9:38 AM [facility] ZCQWhwzrmau00441 - 107 mmol/L109/29/2024 9:38 AM [facility] MLBBX75254 - 31 mmol/L109/29/2024 9:38 AM [facility] LABAnion Ael491 - 16 mmol/L109/29/2024 9:38 AM [facility] SREEakewos076(H)74 - 99 mg/dL07/29/2025 9:38 AM [facility] DOMYDT815 - 23 mg/dL07/29/2025 9:38 AM [facility] LABCreatinine1.1(H)0.50 - 0.90 mg/dL07/29/2025 9:38 AM [facility] LABEst Glojoythi Filt Rate53(L)>60 mL/min/1.47z23607/29/2025 9:38 AM [facility] LABComment: ? These results are not intended [...] tubular secretion. BUN/Creatinine Ratio21(H) - 9:38 AM [facility] LABCalcium9.28.6 - 10.4 mg/dL07/29/2025 9:38 AM [facility] LABTotal Protein6.66.6 - 8.7 g/dL07/29/2025 9:38 AM [facility] LABAlbumin4.33.5 - 5.2 g/dL07/29/2025 9:38 AM [facility] LABAlbumin/Globulin Ratio1.81.0 - 2.512 9:38 AM [facility] LABTotal Bilirubin0.50.00 - 1.20 mg/dL07/29/2025 9:38 AM [facility] LABAlkaline Abajdlkowne4372 - 104 U/L109/29/2024 9:38 AM [facility] JHCVHW8790 - 35 U/L109/29/2024 9:38 AM [facility] MQNYGA7390 - 35 U/L109/29/2024 9:38 AM [facility] LABSpecimen (Source)Anatomical Location / Laterality Collection Method / VolumeCollection TimeReceived TimeBloodBLOOD SPECIMEN / Pryxjjc3107/29/2025 9:38 AM EST07/29/2025 9:39 AM EST Narrative Authorizing ProviderResult TypeResult StatusStefmikey Iacob MDCHEMISTRY ORDERABLES Final ResultPerforming OrganizationAddressCity/State/ZIP CodePhone Number [facility] [address] [place] [address], [facility] [phone] * LEFT HEART CATH / CORONARY ANGIOGRAPHY (06/18/2025 9:59 AM EDT)Anatomical RegionLateralityModalityX-Ray AngiographySpecimen (Source)Anatomical Location / LateralityCollection Method / VolumeCollection TimeReceived Time Narrative 06/18/2025 10:17 AM EDT - Coronary Angiography Brief Post Operative Note: Moderate single vessel coronary artery disease involving a ostial 50% stenosis in the D1 branch of the LAD and a mid 50% stenosis in the left anterior descending coronary artery. Normal left ventricular end diastolic pressure. Proceed with aggressive maximal medical management as clinically indicated. Coronary Findings Diagnostic Dominance: Right Left Main: The vessel exhibits minimal luminal irregularities. Left Anterior Descending: Prox LAD lesion, 50% stenosed. First Diagonal Branch: 1st Diag lesion, 50% stenosed. First Obtuse Marginal Branch: 1st Mrg lesion, 30% stenosed. Right Coronary Artery: The vessel exhibits minimal luminal irregularities. Prox RCA to Mid RCA lesion, 20% stenosed. Intervention No interventions have been documented. Bleeding Risk Calculator Bleeding Risk points = 0. Authorizing ProviderResult TypeResult StatusScarlett Parker CARPENTER'S HELPER - CNPCV CARDIAC CATH ORDERABLESFinal Result * CBC (06/04/2025 3:40 PM EDT)ComponentValueRef RangeTest MethodAnalysis Time Performed AtPathologist SignatureWBC5.83.5 - 11.3 k/uL06/04/2025 3:40 PM EDT [facility] LABRBC4.503.95 - 5.11 m/uL06/04/2025 3:40 PM EDT [facility] ZENRhdjtozdbh76.711.9 - 15.1 g/dL06/04/2025 3:40 PM [facility] HUTJtzxbmxhih85.636.3 - 47.1 %06/04/2025 3:40 PM [facility] YBOIYP93.782.6 - 102.9 fL06/04/2025 3:40 PM [facility] XXNQWB55.425.2 - 33.5 pg06/04/2025 3:40 PM [facility] DUHDVVK94.228.4 - 34.8 g/dL06/04/2025 3:40 PM [facility] WKNEIN60.011.8 - 14.4 %06/04/2025 3:40 PM [facility] RFFMrkwwldos883094 - 453 k/uL06/04/2025 3:40 PM [facility] LABMPV9.88.1 - 13.5 fL06/04/2025 3:40 PM [facility] LABNRBC Automated0.00.0 per 100 WBC 06/04/2025 3:40 PM [facility] LABSpecimen (Source) Anatomical Location / LateralityCollection Method / VolumeCollection Time Received TimeBloodBLOOD SPECIMEN / Kwjrwus5206/04/2025 3:40 PM EDT1 3:41 PM EDT Narrative Authorizing ProviderResult TypeResult StatusMecarla Parker CARPENTER'S HELPER - CNPHEMATOLOGY ORDERABLESFinal ResultPerforming OrganizationAddressCity/State/ZIP CodePhone Number [facility] [address] [phone] * (ABNORMAL) Basic Metabolic Panel (06/04/2025 3:40 PM EDT)ComponentValueRef RangeTest MethodAnalysis TimePerformed AtPathologist TdqzibmxgWyotrt510631 - 145 mmol/L1 3:40 PM [facility] LABPotassium4.0 3.7 - 5.3 mmol/L1 3:40 PM [facility] LABChloride 9998 - 107 mmol/L1 3:40 PM [facility] HUCUN21531 - 31 mmol/L1 3:40 PM [facility] LABAnion Mqt420 - 16 mmol/L1 3:40 PM [facility] ODLTnshyfl9316 - 99 mg/dL06/04/2025 3:40 PM [facility] JHBLAH29(H)8 - 23 mg/dL06/04/2025 3:40 PM [facility] LABCreatinine1.2(H) 0.50 - 0.90 mg/dL06/04/2025 3:40 PM [facility] LABEst, Glom Filt Rate48(L)>60 mL/min/1.89c29606/04/2025 3:40 PM [facility] LABComment: ? These results are not intended [...] affects renal tubular secretion. BUN/Creatinine Ratio21(H) - 3:40 PM [facility] PPCReoqatl42.38.6 - 10.4 mg/dL06/04/2025 3:40 PM [facility] LABSpecimen (Source)Anatomical Location / LateralityCollection Method / VolumeCollection TimeReceived TimeBloodBLOOD SPECIMEN / Hvpipcl8306/04/2025 3:40 PM EDT1 3:41 PM EDT Narrative Authorizing ProviderResult TypeResult StatusScarlett Parker CARPENTER'S HELPER - CNPCHEMISTRY ORDERABLESFinal ResultPerforming OrganizationAddressCity/State/ZIP CodePhone Number [facility] [address] [place] [address], [facility] [phone] * NM LEXISCAN STRESS TEST W/ MYOCARDIAL PERFUSION (05/12/2025 1:13 PM EDT) ComponentValueRef RangeTest MethodAnalysis TimePerformed AtPathologist SignatureBaseline Systolic ZA684isFpVNKZ CV RPACS STRESSBaseline Diastolic BP 84mmHgBSMH CV RPACS STRESSStress Systolic RW133moXvQZGY CV RPACS STRESSStress Diastolic LN31fbSuRNUB CV RPACS STRESSBaseline GX76SSVLIUR CV RPACS STRESS Stress Peak KH65NDDEQGA CV RPACS STRESSStress Estimated Workload1.0METSBSMH CV RPACS STRESSStress Rate Pressure Zvghebs41,648BPM*mmHgBSMH CV RPACS STRESS Stress Target OY260sveIIFV CV RPACS STRESSStress Percent HR Tjdwwlyg81%BSMH CV RPACS STRESSTID1.26BSMH CV RPACS STRESSNuc Stress EF72%BSMH CV RPACS STRESS Anatomical RegionLateralityModalityCardiac DiagnosticSpecimen (Source) Anatomical Location / LateralityCollection Method / VolumeCollection Time Received Time05/11/2025 8:47 AM EDT Narrative 05/12/2025 4:23 PM EDT Stress Combined Conclusion: The study is positive for myocardial ischemia. Findings suggest a moderate risk of cardiac events. ?Stress??Function: Left ventricular function post-stress is normal. Post-stress ejection fraction is 72%. The stress end diastolic cavity size is normal. ?Perfusion??Comments: Prone images were obtained. LV perfusion is abnormal. There is evidence of inducible ischemia. ?Perfusion??Defect: There is a mild severity left ventricular stress perfusion defect that is medium in size present in the anteroapical and apex segment(s). This defect was visualized during the stress and rest phases of imaging. The defect appears to be ischemia. The possibility of artifact cannot be excluded. ?Perfusion??Conclusion: There is borderline evidence of transient ischemic dilation (TID). TID was appreciated visually and quantitatively. TID ratio is 1.26. ?Stress??Test: The patient reported dyspnea during the stress test. The patient reached the end of the protocol. Blood pressure demonstrated a normal response and heart rate demonstrated a normal response to stress. The patient's heart rate recovery was normal. ?Resting??ECG: The ECG shows sinus rhythm. Resting ECG shows non-specific T wave abnormality. There are non-diagnostic Q-waves. ?Stress??ECG: Arrhythmias during recovery: occasional PVCs. The stress ECG was negative for ischemia. Abnormal myocardial perfusion study with a small apical and anteroapical defect, likely ischemia but cannot rule out artifact. Gated SPECT showed normal left ventricular cavity size and wall motion. ?? Calculated ejection fraction 72%. There is evidence of stress-induced transient ischemic dilatation of the left ventricular of 1.26 Overall, these results are most consistent with a intermediate risk for cardiac events. Depending on the patient symptoms and level of clinical suspicion, aggressive medical management vs. additional testing by coronary angiography may be indicated. The sensitivity for detecting ischemia on this test may have been reduced due the patient being on a beta marquis Resting ECG The ECG shows sinus rhythm. Resting ECG shows non-specific T wave abnormality. There are non-diagnostic Q-waves. Stress Findings The patient reported dyspnea during the stress test. The patient reached the end of the protocol. Blood pressure demonstrated a normal response and heart rate demonstrated a normal response to stress. The patient's heart rate recovery was normal. Stress ECG There were no arrhythmias during stress. Arrhythmias during recovery: occasional PVCs. The stress ECG was negative for ischemia. Nuclear Study Quality Nuclear Cardiac SPECT gated stress then rest with tomographic imaging/tomography utilized for the myocardial perfusion procedure. Lexiscan was used as the stressing method and agent. (Lexiscan given via a 10 - 20 sec injection). Two day myocardial perfusion study (05/11/2025 and 05/12/2025). This Single Photon Emission Computer Tomography (SPECT) study utilized tomographic imaging/tomography for the tomographic myocardial perfusion imaging performed during this study. Perfusion Comments Prone images were obtained. LV perfusion is abnormal. There is evidence of inducible ischemia. Perfusion Defect There is a mild severity left ventricular stress perfusion defect that is medium in size present inthe anteroapical and apex segment(s). This defect was visualized during the stress and rest phases of imaging. The defect appears to be ischemia. The possibility of artifact cannot be excluded. Perfusion Defect Conclusion There is borderline evidence of transient ischemic dilation (TID). TID was appreciated visually andquantitatively. TID ratio is 1.26. Stress Function Comments Left ventricular function post-stress is normal. Post-stress ejection fraction is 72%. The stress end diastolic cavity size is normal. Stress Combined Conclusion The study is positive for myocardial ischemia. Findings suggest a moderate risk of cardiac events. Authorizing ProviderResult TypeResult StatusAli F O Ahmad [facility] STRESS ORDERABLES Final Result * Hemoglobin A1C (10/29/2024 10:40 AM EST)ComponentValueRef RangeTest Method Analysis TimePerformed AtPathologist SignatureHemoglobin A1C5.64.0 - 6.0 % 10/29/2024 10:40 AM [facility] LABORATORIESEstimated Avg Hzkpapl422ju/dL 10/29/2024 10:40 AM E[facility] LABORATORIESComment: The ADA and AACC recommend providing the estimated average glucose result to permit better patient understanding of their HBA1c result. Specimen (Source)Anatomical Location / LateralityCollection Method / Volume Collection TimeReceived TimeBloodBLOOD SPECIMEN / Burrtkb6510/29/2024 10:40 AM EST 10/29/2024 10:57 AM EST Narrative Authorizing ProviderResult TypeResult StatusStefan Iacob MDCHEMISTRY ORDERABLES Final ResultPerforming OrganizationAddressCity/State/[facility] CodePhone Number [facility] [id number] [place] [address], [facility] [phone] * [facility] DON DIGITAL SCREEN SELF REFERRAL W OR WO CAD BILATERAL (04/09/2024 1:33 PM EDT)Anatomical RegionLateralityModalityBreastBilateralMammographySpecimen (Source)Anatomical Location / LateralityCollection Method / VolumeCollection TimeReceived Time04/09/2024 2:04 PM EDT Impressions 04/09/2024 2:09 PM EDT No mammographic evidence of malignancy BIRADS: BIRADS - CATEGORY 1 Negative. ??Normal interval follow-up is recommended in 12 months. OVERALL ASSESSMENT - NEGATIVE A letter of notification will be sent to the patient regarding the results. The [employer] recommends annual mammograms for women 40 years and older. Narrative 04/09/2024 2:09 PM EDT EXAMINATION: SCREENING DIGITAL BILATERAL MAMMOGRAM WITH TOMOSYNTHESIS, 04/09/2024 TECHNIQUE: Screening mammography of the bilateral breasts was performed with tomosynthesis. ??2D standard and 3D tomosynthesis combination imaging performed through both breasts in the MLO and CC projection. ??Computer aided detection was utilized in the interpretation of this exam. COMPARISON: January 26, 2023 and November 23, 2021 HISTORY: Screening. FINDINGS: The breasts are heterogeneously dense which can obscure small masses. There is no dominant mass architectural distortion or concerning grouping of microcalcification in either breast. Authorizing ProviderResult TypeResult StatusStefan Елена BOSTONIMG MAMMOGRAPHY ORDERABLESFinal Result * DEXA BONE DENSITY AXIAL SKELETON (11/23/2021 11:33 AM EDT)Anatomical Region LateralityModalityHead, C-spine, T-spine, L-spine, ChestRadiographic Imaging Specimen (Source)Anatomical Location / LateralityCollection Method / Volume Collection TimeReceived Time11/23/2021 11:35 AM EDT Impressions 11/23/2021 12:50 PM EDT 1. The T-score in the lumbar spine is -0.8, consistent with normal bone mass. 2. ??Lowest T-score in the left hip is -1.8, consistent with osteopenia. 3. ??Findings are consistent with osteopenia. 4. ??Fracture risk/FRAX: Major osteoporotic: ??10.8%. ??Hip: ??2.2 %. World Health Organization classification of bone mass: Normal: T-score Greater than -1. Osteopenia (low bone mass ): T-score between -1 and -2.5. Osteoporosis: ??T-score less than -2.5. FRAX calculator fracture probability submitted validated front treated postmenopausal women ages 40 years to 90 years and in men ages 50 years and older. ??The FRAX algorithm may overestimate fracture risk in premenopausal women, postmenopausal women less than 40 years of age, and women and men previously treated with FDA approved therapies for osteoporosis. ??The FRAX algorithm may underestimate the fracture risk in women and men older than the age of 90 years. DEXA scan for this exam: ??[email or web address] RECOMMENDATIONS: If not already instituted, consideration may be given to therapy to increase bone mass. ??Follow-up study in 2 years may be considered on a Roamer system. Narrative 11/23/2021 12:50 PM EDT EXAMINATION: OT left hip lumbar combination DEXA. BONE DENSITOMETRY 11/23/2021 11:33 am TECHNIQUE: DEXA evaluation of the patient's lumbar spine and left hip. COMPARISON: 04 February 2014 HISTORY: Osteoporosis screening. ??Postmenopausal patient. FINDINGS: Lumbar spine: ??Mean BMD measured from L1 through L4 is 1.088 grams/cm2, T-score -0.8, consistent with normal bone mass. ??Compared to prior study there is no significant interval change in the BMD. Left hip: BMD of the entire left hip is 0.783 grams/cm2, consistent with T-score of -1.8 and representing osteopenia. ??Compared to prior study there is no significant interval change in the BMD. BMD of the ??left femoral neck is 0.813 grams/cm2, with young adult T-score of -1.6representing osteopenia. Procedure Note Sharron Pearson MD - 11/23/2021 EXAMINATION: OT left hip lumbar combination DEXA. BONE DENSITOMETRY 11/23/2021 11:33 am TECHNIQUE: DEXA evaluation of the patient's lumbar spine and left hip. COMPARISON: 04 February 2014 HISTORY: Osteoporosis screening. Postmenopausal patient. FINDINGS: Lumbar spine: Mean BMD measured from L1 through L4 is 1.088 grams/cm2, T-score -0.8, consistent with normal bone mass. Compared to prior study there is no significant interval change in the BMD. Left hip: BMD of the entire left hip is 0.783 grams/cm2, consistent with T-scoreof -1.8 and representing osteopenia. Compared to prior study there is no significant interval change in the BMD. BMD of the left femoral neck is 0.813 grams/cm2, with young adult T-scoreof -1.6representing osteopenia. IMPRESSION: 1. The T-score in the lumbar spine is -0.8, consistent with normal bonemass. 2. Lowest T-score in the left hip is -1.8, consistent with osteopenia. 3. Findings are consistent with osteopenia. 4. Fracture risk/FRAX: Major osteoporotic: 10.8%. Hip: 2.2 %. World Health Organization classification of bone mass: Normal: T-score Greater than -1. Osteopenia (low bone mass ): T-score between -1 and -2.5. Osteoporosis: T-score less than -2.5. FRAX calculator fracture probability submitted validated front treated postmenopausal women ages 40 years to 90 years and in men ages 50 yearsand older. The FRAX algorithm may overestimate fracture risk inpremenopausal women, postmenopausal women less than 40 years of age, and women and men previously treated with FDA approved therapies for osteoporosis. TheFRAX algorithm may underestimate the fracture risk in women and men older thanthe age of 90 years. DEXA scan for this exam: [email or web address] RECOMMENDATIONS: If not already instituted, consideration may be given to therapy toincrease bone mass. Follow-up study in 2 years may be considered on a Roamer system. Authorizing ProviderResult TypeResult StatusJoel Stuart APRN - CNPIMG DEXA ORDERABLESFinal Result * Colonoscopy (08/23/2020 8:11 AM EST)Specimen (Source)Anatomical Location / LateralityCollection Method / VolumeCollection TimeReceived Time Narrative Epic, User - 08/23/2020 8:11 AM EST No dictation Authorizing ProviderResult TypeResult StatusBesuleman Woodson I, DOENDOSCOPY ORDERABLESFinal Result * (ABNORMAL) POCT Fecal Immunochemical Test (FIT) (05/21/2020 9:20 AM EDT) ComponentValueRef RangeTest MethodAnalysis TimePerformed AtPathologist SignatureOccult Blood FecalpositiveControlpresentSpecimen (Source)Anatomical Location / LateralityCollection Method / VolumeCollection TimeReceived Time STOOL SPECIMEN / Skzylsn8405/21/2020 9:20 AM EDT Narrative Authorizing ProviderResult TypeResult StatusJoel Stuart CARPENTER'S HELPER - CNPPOINT OF CARE TEST ORDERABLESFinal Result * Hepatitis C Antibody (03/26/2017 8:54 AM EDT)ComponentValueRef RangeTest MethodAnalysis TimePerformed AtPathologist SignatureHepatitis C AbNONREACTIVE NR03/26/2017 7:27 PM EDTMHPN LABComment: ? The hepatitis C procedure used in our laboratory is a Chemiluminescent test specific for three recombinant HCV antigens. ??A negative anti-HCV result indicates that the antibodies to hepatitis C virus are not present at this time. Individuals with reactive anti-HCV should be considered infected and infectious until proven otherwise. ??Confirmation of all equivocal or reactive results is recommended by ordering HCV RNA by PCR. [facility] [address] [place] [address] [id number] ([phone] Specimen (Source)Anatomical Location / LateralityCollection Method / Volume Collection TimeReceived TimeBLOOD SPECIMEN / Dzactoh5703/26/2017 8:54 AM EDT 03/26/2017 8:55 AM EDT Narrative Authorizing ProviderResult TypeResult StatusMark Dre Bell MDIMMUNOLOGY ORDERABLESFinal ResultPerforming OrganizationAddressCity/State/ZIP CodePhone Number [facility] [id number], [facility] [phone] [facility] from Last 3 Months or Most Recently Relevant to Health Maintenance Insurance * Guarantor: Apryl Parker TypeRelation to PatientDate of BirthPhone Billing AddressPersonal/CmlyvbQhja81/01/1946 [address] [address] Advance Directives * Full Code (Latest Code Status on File) Date ActivatedDate AououeuwxwlMkanpeva93/23/2025 11:18 AM06/18/2025 2:20 PM * Full Code Date ActivatedDate GkwsufgfexwBffxlqiu94/23/2025 8:14 AM06/18/2025 11:18 AM * Full Code Date ActivatedDate InactivatedComments09/01/2019 12:00 PM09/02/2019 5:23 PM * Full Code Date ActivatedDate InactivatedComments02/16/2013 2:57 PM02/22/2013 1:11 PM * Full Code Date ActivatedDate InactivatedComments02/13/2013 4:07 PM02/16/2013 2:57 PM NameRelationshipHealthcare Agent RelationshipCommunicationMavis Gavino Brother/SisterPrimary Decision Maker* * * * [email or web address] Care Teams Team MemberRelationshipSpecialtyStart DateEnd Date Guido Christiansen MD [address] [place] [id number] [facility]01/01/23
== END 2025-07-30 09:13 | disposition home or self-care (01) ==
LOC: MAMMO 09:12
PROVIDERS: PCP Family Medicine; Visit Provider Family Medicine
DX: Z12.31 Encounter for screening mammogram for malignant neoplasm of breast (principal); Z80.3 Family history of malignant neoplasm of breast; Z80.7 Family history of other malignant neoplasms of lymphoid, hematopoietic and related tissues; Z80.6 Family history of leukemia
CPT/HCPCS: 77063; 77067